=== PATIENT | female | born 1950 | race Caucasian/White ===

== ENCOUNTER 2019-12-08 07:56 | Day surgery (SDC) | payer BC, SELFPAY ==
[2019-12-07 13:21] VITALS: BMI 37.3
--- NOTE | 2019-12-08 08:26 | ANES.PREANES ---
Pre-Anesthetic Assessment Pre-Anesthetic Assessment: Height/Weight: Height 1.6 m Weight 95.708 kg Proposed Procedure: Operation Date: 12/08/19 09:15 Proposed Procedures p EGD 04928 R10.13(Not Applicable) - Luis Miguel Maynard MD Social: Social History: No alcohol and No tobacco Exam: Pre-Anes Outpt Exam: alert, oriented x 3, clear to auscultation bilaterally and regular rate & rhythm Airway: Submandibular: WNL Cervical ROM: WNL MP: 2 Dentition: Full History/ROS: No significant history except as noted Pulmonary: Pulmonary: None reported CV/HEM: CV/HEM: None reported : Comments: incontinance Hepatic: Hepatic: None reported GI: GI: GERD (controlled) Metabolic: Metabolic: Morbid obesity Musc/skel: Musc/skel: Lower Back Pain and OA/DJD Neuropsych: Neuropsych: Anxiety and Depression Anesthetic Plan: ASA status: III Anesthesia: Anesthesia Evaluation and MAC Risk of > 500 ml blood loss (7ml/kg in children): No PFSH Anesthesia PFSH: Medical History DDD (degenerative disc disease) (Acute) Depression (Acute) GERD (gastroesophageal reflux disease) (Acute) Hiatal hernia (Acute) Urge incontinence (Acute) Surgical History H/O colonoscopy (Acute) 3 yrs ago H/O total knee replacement (Acute) bilateral History of cataract extraction (Acute) History of oophorectomy (Acute) one removed Family History Mother Diabetes Brother Cancer Denies family history of Anesthesia complication Bleeding disorder Social History Smoking and tobacco status: former smoker Alcohol intake: never Lives independently: Yes Household members: spouse Marital status: Current occupational status: employed Data Anesthesia Cardiac Studies: No Data to Display
--- NOTE | 2019-12-08 08:55 | ECG_ITS ---
Measurements Intervals [place] Rate: 65 P: 21 HI: 178 QRS: 13 QRSD: 86 T: 52 QT: 416 QTc: 434 SINUS RHYTHM Compared to ECG 11/07/2015 12:37:21 No significant changes Electronically Signed On 12-08-2019 16:22:12 COVER ASSEMBLER by Paul Gibson M.D. [email or web address]
[2019-12-08 09:03] VITALS: BP 169/94; PULSE 71; RESP 18; TEMP 36.9; O2SAT 97
[2019-12-08] MEDS: sodium chloride 0.9% 1,000 ML 30 ML IV (09:07)
--- NOTE | 2019-12-08 09:22 | ANE.PACU ---
 Inpatient post-anesthesia follow up: Airway intact: Yes Vital signs: Temperature 98.4 F Pulse Rate [Monito r] 71 Respiratory Rate 18 Blood Pressure [Le ft Arm] 169/94 Pulse Oximetry 97 Oxygen Delivery Me thod Room Air Oxygen Flow Rate Fraction of Inspir ed Oxygen Hydration adequate: Yes Nausea and vomiting: No Pain level: 1 Mental status: Baseline
--- NOTE | 2019-12-08 09:43 | PM.HPUD ---
H&P update H&P Update: DATE OF SURGERY/PROCEDURE: 12/08/19 DATE H&P PERFORMED: 12/03/19 H&P UPDATE INFORMATION: H&P completed within last 30 days and No changes to prior documentation PLANNED PROCEDURE: Operation Date: 12/08/19 09:15 Proposed Procedures p EGD 34988 R10.13(Not Applicable) - Luis Miguel Maynard MD Full H&P Medications/Allergies: Current Medications: Current Medications Generic Name Dose Route Start Last Admin Trade Name Freq PRN Reason Stop Dose Admin Sodium Chloride 1,000 mls @ 30 ml s/hr 12/08/19 09:00 12/08/19 09:07 Sodium Chloride 0.9% IV 30 mls/hr .Q24H KIT Administration Perinent History: Medical/Surgical History: Medical History (Updated 12/03/19 @ 11:08 by Luis Miguel Maynard MD) DDD (degenerative disc disease) (Acute) Depression (Acute) GERD (gastroesophageal reflux disease) (Acute) Hiatal hernia (Acute) Urge incontinence (Acute) Family History: Family History (Updated 12/03/19 @ 10:58 by Yojana Beebe LPN) Mother Diabetes Brother Cancer Denies family history of Anesthesia complication Bleeding disorder Social History: Social History Smoking and tobacco status: former smoker Alcohol intake: never Lives independently: Yes Household members: spouse Marital status: Current occupational status: employed
[2019-12-08 09:49] VITALS: BP 118/78; PULSE 97; RESP 16; TEMP 36.5; O2SAT 97
[2019-12-08 09:55] VITALS: BP 142/64; PULSE 67; RESP 16; O2SAT 100
[2019-12-08 10:10] VITALS: BP 167/78; PULSE 67; RESP 18; O2SAT 100
== END 2019-12-08 10:33 | disposition home or self-care (01) ==
PROVIDERS: Family Provider Nurse Practitioner Family; PCP Nurse Practitioner Family; Visit Provider Surgery
PROC: 0DJ08ZZ Inspection of Upper Intestinal Tract, Via Natural or Artificial Opening Endoscopic (ICD-10-PCS; CPT 43235; principal; 2019-12-08 09:15)
DX: K21.9 Gastro-esophageal reflux disease without esophagitis (principal); K44.9 Diaphragmatic hernia without obstruction or gangrene; Z83.3 Family history of diabetes mellitus; Z87.891 Personal history of nicotine dependence; Z79.82 Long term (current) use of aspirin
CPT/HCPCS: 12345; 43239; 88305; 93005; 96365; J2704; J7030

== ENCOUNTER 2019-12-17 09:59 | Outpatient (CLI) | payer BC, SELFPAY ==
--- NOTE | 2019-12-17 10:00 | NM_ITS ---
WS: [id number] NUCLEAR MEDICINE HIDA SCAN WITH GALLBLADDER EJECTION FRACTION HISTORY: abdominal pain COMPARISON: 09/18/2006 TECHNIQUE: The patient was intravenously injected with 7.7 mCi of TC99m Mebrofenin. Immediate imaging over the right upper quadrant was followed by 5 minute image and additional images for a total of 60 minutes. Normal uptake of radiotracer throughout the liver. Activity identified in the gallbladder at 30 minutes and well distended by 60 minutes. Activity in the proximal small bowel was seen by 30 minutes. Good washout of the radiotracer from the liver by 60 minutes. The patient then drank 8 ounces of Ensure Plus. Ejection fraction at 60 minutes was 86%. Normal GB ej ection fraction is 35-75%. Post fatty meal symptoms: None. NM/NM hepatobiliary w phar* [id number] IMPRESSION: 1. Normal HIDA scan. 2. Normal gallbladder ejection fraction.
== END 2019-12-17 10:00 | disposition home or self-care (01) ==
LOC: RAD 10:06
PROVIDERS: Visit Provider Surgery
DX: R10.9 Unspecified abdominal pain (principal)
CPT/HCPCS: 78227; A9537

== ENCOUNTER 2019-12-26 18:37 | Emergency (ER) | payer BC, SELFPAY ==
[2019-12-26 19:19] VITALS: BP 169/99; PULSE 90; RESP 16; TEMP 36.9; O2SAT 99; BMI 37.7
--- NOTE | 2019-12-26 19:42 | USCV_ITS ---
Anyi Shoemaker Age: 69 Gender: F : 1950 Exam Date: 12/26/2019 20:46 Ordering Phys: Varun Sargent Technologist: Nicholas Patel Exam Location: [facility] – [place]_ Indication: RT LEG PAIN AND SWELLING HISTORY: Lower extremity swelling. PROCEDURES: Venous duplex imaging was performed in only the right lower extremity. The following venous structures were evaluated: common femoral vein, profunda vein, proximal portion of the greater saphenous vein, superficial femoral vein, and the popliteal vein. In addition, the posterior tibial and peroneal trunk were evaluated. On the right side, the common femoral, superficial femoral, profunda femoral, popliteal, posterior tibial, greater saphenous veins and the peroneal trunk were identified and interrogated in the standard fashion. These veins were found to be easily compressible with spontaneous blood flow. No evidence of insufficiency or thrombus noted. FINDINGS: Normal 2-D Doppler and augmentation and compressibility throughout the lower extremity venous structures. Additional imaging through the proximal calf veins also reveals no thrombus. Limited evaluation of the greater saphenous vein is patent with no thrombus.. The veins were found to be easily compressible with spontaneous blood flow. Non pulsatile flow pattern. CONCLUSIONS No evidence of DVT in the above-mentioned identifiable veins. Dr Mary Farrar MD [facility] (Electronically Signed) Final Date: 28 December 2019 10:13 S
[2019-12-26 20:02] LABS: Basophils # 0.1 10^3/uL (0.0-0.1); Basophils % 0.5 %; Eosinophils # 0.2 10^3/uL (0.0-0.8); Eosinophils % 2.1 %; Hematocrit 41.5 % (37.0-47.0); Lymphocytes # 1.4 10^3/uL (0.8-4.8); Lymphocytes % 15.2 %; Mean Corpuscular HGB Conc 31.3 g/dL (30.0-36.0); Mean Corpuscular Hemoglobin 31.8 pg (28.0-34.0); Mean Corpuscular Volume 101.5 fL (81-99); Mean Platelet Volume 10.2 fL (7.4-10.4); Monocytes # 0.7 10^3/uL (0.2-0.9); Monocytes % 7.1 %; Neutrophils # 6.8 10^3/uL (1.8-7.7); Neutrophils % 74.9 %; Nucleated Red Blood Cells % 0 %; Platelet Count 243 10^3/cmm (130-400); Red Blood Count 4.09 10^6/uL (4.1-5.3); Red Cell Distribution Width 13.4 % (12.1-15.1); White Blood Count 9.1 10^3/uL (4.0-10.0)
[2019-12-26 20:15] LABS: Lactic Sepsis W/Reflex 0.9 mmol/L (0.5-2.2)
[2019-12-26 20:16] LABS: Alanine Aminotransferase 14 U/L (0-33); Albumin Level 4.2 g/dL (3.5-5.2); Alkaline Phosphatase 58 IU/L (35-105); Anion Gap 14.5 (5-19); Aspartate Amino Transferase 20 U/L (0-32); Blood Urea Nitrogen 11 mg/dL (8-23); Calcium 9.6 mg/dL (8.5-10.5); Carbon Dioxide 29 mmol/L (22-29); Chloride 102 mmol/L (98-107); Globulin 3.3 g/dL (1.3-4.6); Glomerular Filtration Rate 122.3 mL/min (90-130); Glucose 112 mg/dL (65-115); Potassium 4.5 mmol/L (3.5-5.1); Sodium 141 mmol/L (136-145); Total Bilirubin 0.2 mg/dL (0.15-1.2); Total Protein 7.5 g/dL (6.6-8.7)
--- NOTE | 2019-12-26 21:38 | ED_ITS ---
Documented by User: ADRIANA Jimenez 12/26/19 21:40 HPI - Extremity Problem General: Chief complaint: Extremity Injury, Lower Stated complaint: swelling rle Time Seen by Provider: 12/26/19 21:25 History of Present Illness: HPI Narrative: Swelling of the right lower extremity on the grant area times a couple days. Patient history of varicose veins. MD Complaint: extremity pain Onset (ago): day(s) (2) Pain Consistency: constant Location: right and lower extremity Severity scale (1-10): 3 Quality: aching Radiation: none Relieving factors: nothing Exacerbating factors: nothing Associated symptoms: Reports no associated symptoms; Deny chest pain, fever(s) or rash Review of Systems Narrative: Swelling and redness to the right lower extremity anterior aspect x2 days and history of varicose veins. Const: Denies: fever, chills or body aches Eyes: Denies: change in vision or blurry vision ENMT: Denies: throat pain or nasal congestion Card: Denies: chest pain or shortness of breath on exertion Resp: Denies: shortness of breath, productive cough or non-productive cough GI: Denies: abdominal pain, nausea or vomiting Musc: Denies: extremity pain Skin/Breast: Denies: rash Neuro: Denies: headache Psych: Denies: anxiety or depression Vinnie/Lymph: Denies: easy bruising PFSH ED PFSH: Medical History (Updated 12/26/19 @ 21:38 by ADRIANA Jimenez) DDD (degenerative disc disease) Depression GERD (gastroesophageal reflux disease) Hiatal hernia Urge incontinence Surgical History (Updated 12/08/19 @ 09:45 by Luis Miguel Maynard MD) H/O colonoscopy 3 yrs ago H/O esophagogastroduodenoscopy 12/08/2019: Hiatal hernia H/O total knee replacement bilateral History of cataract extraction History of oophorectomy one removed Social History Smoking and tobacco status: former smoker Alcohol intake: never Lives independently: Yes Household members: spouse Marital status: Current occupational status: employed Physical Exam Const: COMMON NORMALS: no apparent distress, average body habitus and oriented x3 HENMT: COMMON NORMALS: normocephalic HEAD & SCALP: normal to inspection and normocephalic FACE & SINUS: normal facial exam Eye: COMMON NORMALS: conjunctivae normal GENERAL EYE: normal appearance of both eyes CONJUNCTIVA: Yes conjunctivae normal Neck/C-Spine: COMMON NORMALS: no JVD Chest: COMMONS NORMALS: inspection of chest normal Resp: COMMON NORMALS: normal respiratory effort and clear to auscultation bilaterally AUSCULTATION: clear to auscultation bilaterally Cardio: COMMON NORMALS: no JVD, regular rate and regular rhythm RATE: regular rate RHYTHM: regular rhythm GI: COMMON NORMALS: normal to inspection, nondistended, normoactive bowel sounds Extremity: COMMON NORMALS: normal to inspection and full ROM RIGHT LOWER EXTREMITY: Yes lower leg (Has area about a 4 cm x 5 cm lower grant anterior aspect that has erythema slight tenderness and there are scattered varicose veins right around the right lower extremity) Neuro: COMMON NORMALS: oriented x3 Course Vital Signs: Vital signs: Vital Signs Temperature 98.4 F 12/26/19 19:19 Pulse Rate 88 12/26/19 21:58 Respiratory Rate 16 12/26/19 21:58 Blood Pressure 167/65 12/26/19 21:58 Pulse Oximetry 97 12/26/19 21:58 MDM - Extremity (Nontraumatic) MDM Narrative: Medical decision making narrative: pharmaceutical development technician says it is a superficial phlebitis on the right lower extremity Lab Data: Labs: Lab Results 12/26/19 12/26/19 12/26/19 Range/Units 19:50 19:50 19:50 WBC 9.1 (4.0-10.0) 10^3/ uL RBC 4.09 L (4.1-5.3) 10^6/u L Hgb 13.0 (11.5-15.3) g/dL Hct 41.5 (37.0-47.0) % MCV 101.5 H (81-99) fL MCH 31.8 (28.0-34.0) pg MCHC 31.3 (30.0-36.0) g/dL RDW 13.4 (12.1-15.1) % Plt Count 243 (130-400) 10^3/c mm MPV 10.2 (7.4-10.4) fL Neut % (Auto) 74.9 % Lymph % (Auto) 15.2 % [place] % (Auto) 7.1 % Eos % (Auto) 2.1 % Baso % (Auto) 0.5 % Neut # (Auto) 6.8 (1.8-7.7) 10^3/u L Lymph # (Auto) 1.4 (0.8-4.8) 10^3/u L [place] # (Auto) 0.7 (0.2-0.9) 10^3/u L Eos # (Auto) 0.2 (0.0-0.8) 10^3/u L Baso # (Auto) 0.1 (0.0-0.1) 10^3/u L Nucleated RBC % (a uto) 0 % Nucleated RBCs # 0.0 /100WBC PT 12.40 (10.5-13.3) SECO NDS INR 0.90 (0.8-1.2) Sodium 141 (136-145) mmol/L Potassium 4.5 (3.5-5.1) mmol/L Chloride 102 (98-107) mmol/L Carbon Dioxide 29 (22-29) mmol/L Anion Gap 14.5 (5-19) BUN 11 (8-23) mg/dL Creatinine 0.5 (0.5-0.9) mg/dL GFR Calculation 122.3 (90-130) mL/min Glucose 112 (65-115) mg/dL Lactic Acid (0.5-2.2) mmol/L Calcium 9.6 (8.5-10.5) mg/dL Total Bilirubin 0.2 (0.15-1.2) mg/dL AST 20 (0-32) U/L ALT 14 (0-33) U/L Alkaline Phosphata se 58 (35-105) IU/L Total Protein 7.5 (6.6-8.7) g/dL Albumin 4.2 (3.5-5.2) g/dL Globulin 3.3 (1.3-4.6) g/dL 12/26/19 Range/Units 19:50 WBC (4.0-10.0) 10^3/ uL RBC (4.1-5.3) 10^6/u L Hgb (11.5-15.3) g/dL Hct (37.0-47.0) % MCV (81-99) fL MCH (28.0-34.0) pg MCHC (30.0-36.0) g/dL RDW (12.1-15.1) % Plt Count (130-400) 10^3/c mm MPV (7.4-10.4) fL Neut % (Auto) % Lymph % (Auto) % [place] % (Auto) % Eos % (Auto) % Baso % (Auto) % Neut # (Auto) (1.8-7.7) 10^3/u L Lymph # (Auto) (0.8-4.8) 10^3/u L [place] # (Auto) (0.2-0.9) 10^3/u L Eos # (Auto) (0.0-0.8) 10^3/u L Baso # (Auto) (0.0-0.1) 10^3/u L Nucleated RBC % (a uto) % Nucleated RBCs # /100WBC PT (10.5-13.3) SECO NDS INR (0.8-1.2) Sodium (136-145) mmol/L Potassium (3.5-5.1) mmol/L Chloride (98-107) mmol/L Carbon Dioxide (22-29) mmol/L Anion Gap (5-19) BUN (8-23) mg/dL Creatinine (0.5-0.9) mg/dL GFR Calculation (90-130) mL/min Glucose (65-115) mg/dL Lactic Acid 0.9 (0.5-2.2) mmol/L Calcium (8.5-10.5) mg/dL Total Bilirubin (0.15-1.2) mg/dL AST (0-32) U/L ALT (0-33) U/L Alkaline Phosphata se (35-105) IU/L Total Protein (6.6-8.7) g/dL Albumin (3.5-5.2) g/dL Globulin (1.3-4.6) g/dL Discharge Plan Discharge Patient Disposition: Home, Self-Care Clinical Impression: Superficial phlebitis Condition: Stable Prescriptions: New Keflex 500 mg capsule 500 mg PO TID 7 Days Qty: 21 RF: 0 prednisone 5 mg tablet 5 mg PO DAILY Qty: 7 RF: 0 No Action omeprazole 20 mg capsule,delayed release(DR/EC) 20 mg PO BID RF: 0 furosemide 20 mg tablet 20 mg PO QAM PRN (Reason: Edema) RF: 0 citalopram 20 mg tablet 10 mg PO DAILY RF: 0 albuterol sulfate [ProAir HFA] 90 mcg/actuation HFA aerosol inhaler 2 puff INHALATION Q6H PRN (Reason: Shortness Of Breath) RF: 0 alendronate 70 mg tablet 70 mg PO .once a week RF: 0 cholecalciferol (vitamin D3) 1,000 unit capsule 1,000 unit PO QDAY RF: 0 calcium carbonate 500 mg calcium (1,250 mg) tablet 500 mg PO QDAY RF: 0 vitamin B complex [B Complex-Vitamin B12] Tablet 1 tab PO QDAY RF: 0 aspirin 81 mg tablet,delayed release (DR/EC) 81 mg PO QDAY RF: 0 cetirizine 10 mg tablet 10 mg PO QDAY RF: 0 Discharge Orders: Discharge Order (Routine); Ordered 12/26/19 Ordered By: Varun Sargent Discharge Diet: Advance as tolerated Discharge Activity: Increase activity as tolerated Patient Instructions: Superficial Thrombophlebitis (ED) Activity Restrictions/Additional Instructions: Follow-up with medical provider as directed. Take medications as prescribed. Return to the ER or your medical provider if condition worsens. Please read and understand discharge instructions. If any questions ask please. Follow-up with Dr. Maynard next week as scheduled and have him evaluate the leg Discharge Date/Time: 12/26/19 21:59 Coding Level of Care Code ED Burn Crew Member for Chg Fwd Exam Comprehensive Documented by User: Ceci Rouse 12/27/19 02:43 HPI - Extremity Problem General: Chief complaint: Extremity Injury, Lower Stated complaint: swelling rle Time Seen by Provider: 12/26/19 21:25 [facility] ED PFSH: Medical History (Updated 12/26/19 @ 21:38 by ADRIANA Jimenez) DDD (degenerative disc disease) Depression GERD (gastroesophageal reflux disease) Hiatal hernia Urge incontinence Surgical History (Updated 12/08/19 @ 09:45 by Luis Miguel Maynard MD) H/O colonoscopy 3 yrs ago H/O esophagogastroduodenoscopy 12/08/2019: Hiatal hernia H/O total knee replacement bilateral History of cataract extraction History of oophorectomy one removed Social History Smoking and tobacco status: former smoker Alcohol intake: never Lives independently: Yes Household members: spouse Marital status: Current occupational status: employed Course Vital Signs: Vital signs: Vital Signs Temperature 98.4 F 12/26/19 19:19 Pulse Rate 88 12/26/19 21:58 Respiratory Rate 16 12/26/19 21:58 Blood Pressure 167/65 12/26/19 21:58 Pulse Oximetry 97 12/26/19 21:58 MDM - Extremity (Nontraumatic) Lab Data: Labs: Lab Results 12/26/19 12/26/19 12/26/19 Range/Units 19:50 19:50 19:50 WBC 9.1 (4.0-10.0) 10^3/ uL RBC 4.09 L (4.1-5.3) 10^6/u L Hgb 13.0 (11.5-15.3) g/dL Hct 41.5 (37.0-47.0) % MCV 101.5 H (81-99) fL MCH 31.8 (28.0-34.0) pg MCHC 31.3 (30.0-36.0) g/dL RDW 13.4 (12.1-15.1) % Plt Count 243 (130-400) 10^3/c mm MPV 10.2 (7.4-10.4) fL Neut % (Auto) 74.9 % Lymph % (Auto) 15.2 % [place] % (Auto) 7.1 % Eos % (Auto) 2.1 % Baso % (Auto) 0.5 % Neut # (Auto) 6.8 (1.8-7.7) 10^3/u L Lymph # (Auto) 1.4 (0.8-4.8) 10^3/u L [place] # (Auto) 0.7 (0.2-0.9) 10^3/u L Eos # (Auto) 0.2 (0.0-0.8) 10^3/u L Baso # (Auto) 0.1 (0.0-0.1) 10^3/u L Nucleated RBC % (a uto) 0 % Nucleated RBCs # 0.0 /100WBC PT 12.40 (10.5-13.3) SECO NDS INR 0.90 (0.8-1.2) Sodium 141 (136-145) mmol/L Potassium 4.5 (3.5-5.1) mmol/L Chloride 102 (98-107) mmol/L Carbon Dioxide 29 (22-29) mmol/L Anion Gap 14.5 (5-19) BUN 11 (8-23) mg/dL Creatinine 0.5 (0.5-0.9) mg/dL GFR Calculation 122.3 (90-130) mL/min Glucose 112 (65-115) mg/dL Lactic Acid (0.5-2.2) mmol/L Calcium 9.6 (8.5-10.5) mg/dL Total Bilirubin 0.2 (0.15-1.2) mg/dL AST 20 (0-32) U/L ALT 14 (0-33) U/L Alkaline Phosphata se 58 (35-105) IU/L Total Protein 7.5 (6.6-8.7) g/dL Albumin 4.2 (3.5-5.2) g/dL Globulin 3.3 (1.3-4.6) g/dL 12/26/19 Range/Units 19:50 WBC (4.0-10.0) 10^3/ uL RBC (4.1-5.3) 10^6/u L Hgb (11.5-15.3) g/dL Hct (37.0-47.0) % MCV (81-99) fL MCH (28.0-34.0) pg MCHC (30.0-36.0) g/dL RDW (12.1-15.1) % Plt Count (130-400) 10^3/c mm MPV (7.4-10.4) fL Neut % (Auto) % Lymph % (Auto) % [place] % (Auto) % Eos % (Auto) % Baso % (Auto) % Neut # (Auto) (1.8-7.7) 10^3/u L Lymph # (Auto) (0.8-4.8) 10^3/u L [place] # (Auto) (0.2-0.9) 10^3/u L Eos # (Auto) (0.0-0.8) 10^3/u L Baso # (Auto) (0.0-0.1) 10^3/u L Nucleated RBC % (a uto) % Nucleated RBCs # /100WBC PT (10.5-13.3) SECO NDS INR (0.8-1.2) Sodium (136-145) mmol/L Potassium (3.5-5.1) mmol/L Chloride (98-107) mmol/L Carbon Dioxide (22-29) mmol/L Anion Gap (5-19) BUN (8-23) mg/dL Creatinine (0.5-0.9) mg/dL GFR Calculation (90-130) mL/min Glucose (65-115) mg/dL Lactic Acid 0.9 (0.5-2.2) mmol/L Calcium (8.5-10.5) mg/dL Total Bilirubin (0.15-1.2) mg/dL AST (0-32) U/L ALT (0-33) U/L Alkaline Phosphata se (35-105) IU/L Total Protein (6.6-8.7) g/dL Albumin (3.5-5.2) g/dL Globulin (1.3-4.6) g/dL Discharge Plan Discharge Patient Disposition: Home, Self-Care Clinical Impression: Superficial phlebitis Condition: Stable Prescriptions: New Keflex 500 mg capsule 500 mg PO TID 7 Days Qty: 21 RF: 0 prednisone 5 mg tablet 5 mg PO DAILY Qty: 7 RF: 0 No Action omeprazole 20 mg capsule,delayed release(DR/EC) 20 mg PO BID RF: 0 furosemide 20 mg tablet 20 mg PO QAM PRN (Reason: Edema) RF: 0 citalopram 20 mg tablet 10 mg PO DAILY RF: 0 albuterol sulfate [ProAir HFA] 90 mcg/actuation HFA aerosol inhaler 2 puff INHALATION Q6H PRN (Reason: Shortness Of Breath) RF: 0 alendronate 70 mg tablet 70 mg PO .once a week RF: 0 cholecalciferol (vitamin D3) 1,000 unit capsule 1,000 unit PO QDAY RF: 0 calcium carbonate 500 mg calcium (1,250 mg) tablet 500 mg PO QDAY RF: 0 vitamin B complex [B Complex-Vitamin B12] Tablet 1 tab PO QDAY RF: 0 aspirin 81 mg tablet,delayed release (DR/EC) 81 mg PO QDAY RF: 0 cetirizine 10 mg tablet 10 mg PO QDAY RF: 0 Discharge Orders: Discharge Order (Routine); Ordered 12/26/19 Ordered By: Varun Sargent Discharge Diet: Advance as tolerated Discharge Activity: Increase activity as tolerated Patient Instructions: Superficial Thrombophlebitis (ED) Activity Restrictions/Additional Instructions: Follow-up with medical provider as directed. Take medications as prescribed. Return to the ER or your medical provider if condition worsens. Please read and understand discharge instructions. If any questions ask please. Follow-up with Dr. Maynard next week as scheduled and have him evaluate the leg Discharge Date/Time: 12/26/19 21:59 Coding Level of Care Code ED Burn Crew Member for Chg Fwd Exam Comprehensive
[2019-12-26] MEDS: predniSONE 10 mg Tablet PO (21:42)
[2019-12-26] MEDS: cephALEXin 500 mg Capsule PO (21:42)
[2019-12-26 21:58] VITALS: BP 167/65; PULSE 88; RESP 16; O2SAT 97
== END 2019-12-26 21:59 | disposition home or self-care (01) ==
PROVIDERS: Emergency Provider Nurse Practitioner Family
DX: I80.01 Phlebitis and thrombophlebitis of superficial vessels of right lower extremity (principal); Z87.891 Personal history of nicotine dependence
CPT/HCPCS: 80053; 83605; 85025; 85610; 93971; 99281; 99283; J7512

== ENCOUNTER 2020-01-07 15:13 | Outpatient (REF) | payer SELFPAY ==
[2020-01-07 16:42] LABS: Estmated Average Glucose 114; Hemoglobin A1C 5.6 % (4.0-6.0)
[2020-01-07 17:06] LABS: Chol HDL Ratio 3.04 mg/dL (0.0-4.40); Cholesterol 158 mg/dL (0-200); Glucose 92 mg/dL (65-115); HDL Cholesterol 52 mg/dL (60-100); LDL Cholesterol Calculated 91 mg/dL (50-129); LDL HDL Ratio 1.75 RATIO (0.00-3.22); Triglycerides 75 mg/dL (0-150)
== END 2020-01-07 15:14 | disposition home or self-care (01) ==
LOC: LAB 15:13
PROVIDERS: Visit Provider Dermatology
DX: Z13.9 Encounter for screening, unspecified (principal)
CPT/HCPCS: 80061; 82947; 83036

== ENCOUNTER 2020-06-27 11:28 | Emergency (ER) | payer BC, SELFPAY ==
[2020-06-27 11:30] VITALS: BP 185/72; PULSE 75; RESP 18; TEMP 36.6; O2SAT 97; BMI 37.2
--- NOTE | 2020-06-27 11:47 | XR_ITS ---
WS: [id number] RIGHT RIBS, MULTIPLE VIEWS WITH PA CHEST HISTORY: fall/pain COMPARISON: 12/10/2016 Lungs and mediastinum: Lungs are clear. No pneumothorax or pulmonary contusion. No pleural effusion. Ribs: No fractures are identified. Several of the images are degraded by motion. XR/XR ribs RT mn 3V w CXR1V [id number] IMPRESSION: Limited examination secondary to motion. No fractures identified.
--- NOTE | 2020-06-27 11:49 | W.ED.FALL ---
HPI - Fall General: Chief Complaint: Fall Stated Complaint: FALL Time Seen by Provider: 06/27/20 11:33 Source: patient Mode of arrival: ambulatory Limitations: no limitations History of Present Illness: HPI Narrative: Patient is a 69-year-old female who presents to ED today with a complaint of right-sided back pain following a fall that occurred approximately 3 to 4 days ago. Patient tells me on Saturday of last week she was at [employer] and was coming out of the bathroom and was turning around when her feet got caught up causing her to fall backwards and strike the right side of her back onto the adjacent door hinge. Patient states she began noticing pain immediately and is seeking evaluation today because pain does not seem to improve. They have noticed bruising to the right side of her back. She denies any other injury sustained during the fall. MD complaint: fall Onset (ago): day(s) Fall from: standing Fall witnessed: yes, by bystander Place fall occurred: other ([facility]) Loss of consciousness: None Prolonged down time: no Context: tripped/slipped Location of injury: chest Associated symptoms-after fall: Denies abdominal pain, chest pain, headache(s) or neck pain Review of Systems Const: Denies: fever(s), chills or body aches Eyes: Denies: change in vision Card: Denies: chest pain, palpitations, irregular heart rhythm, syncope or pre-syncope Resp: Denies: dyspnea, productive cough, non-productive cough, hemoptysis or chest congestion GI: Denies: abdominal pain, nausea or vomiting Musc: Reports: back pain; Denies: neck pain, extremity pain, extremity swelling, joint pain or joint swelling Neuro: Denies: headache(s), numbness in extremities, weakness in extremities or sensory changes [facility] ED PFSH: Medical History (Updated 06/27/20 @ 12:34 by YOVANA Drake) DDD (degenerative disc disease) Depression GERD (gastroesophageal reflux disease) Hiatal hernia Urge incontinence Surgical History H/O colonoscopy 3 yrs ago H/O esophagogastroduodenoscopy 12/08/2019: Hiatal hernia H/O total knee replacement bilateral History of cataract extraction History of oophorectomy one removed Family History Mother Diabetes Brother Cancer Denies family history of Anesthesia complication Bleeding disorder Social History Smoking and tobacco status: former smoker Alcohol intake: never Lives independently: Yes Household members: spouse Marital status: Current occupational status: employed History of recent travel: No Physical Exam Const: COMMON NORMALS: no acute distress, patient oriented x3, no limitations and alert NUTRITIONAL APPEARANCE: obese HENMT: COMMON NORMALS: normocephalic and atraumatic HEAD & SCALP: normocephalic and atraumatic Neck/C-Spine: COMMON NORMALS: full ROM CERVICAL SPINE: Yes cervical ROM normal, No Cervical spine tenderness and No Paracervical muscle tenderness Chest: CHEST: Yes abnormal inspection of the chest (pt with ecchymosis to R lower posterior chest wall), No crepitus and Yes Ecchymosis present OTHER: TTP R lower posterior ribs Resp: COMMON NORMALS: normal respiratory effort and clear to auscultation bilaterally AUSCULTATION: clear to auscultation bilaterally Cardio: COMMON NORMALS: regular rate and regular rhythm RATE: regular rate RHYTHM: regular rhythm GI: COMMON NORMALS: Normal to inspection, nondistended, normoactive bowel sounds present, Soft to palpation, non-tender, No hepatosplenomegaly present and no masses PALPATION: Yes Soft to palpation and Yes No hepatosplenomegaly present Back/Pelvis: COMMON NORMALS: thoracic and lumbar spine normal to inspection, no thoracic nor lumbar tenderness and thoraco-lumbar ROM normal Extremity: COMMON NORMALS: normal to inspection and full ROM GENERAL: Yes normal exam except as noted Neuro: COMMON NORMALS: patient oriented x3, moves all extremities, no focal motor deficits, no sensory deficits noted and gait normal SENSORIUM/ORIENTATION: Yes alert Skin: NARRATIVE SKIN EXAM: ecchymosis-see back assessment; otherwise normal skin exam Course Vital Signs: Vital signs: Vital Signs Temperature 97.8 F 06/27/20 11:30 Pulse Rate 72 06/27/20 12:13 Respiratory Rate 18 06/27/20 12:13 Blood Pressure 173/75 06/27/20 12:13 Pulse Oximetry 97 06/27/20 12:13 MDM - Fall Imaging Data^: R ribs/CXR: Radiologist's impression: [facility] [address] [place] [address] XRay Report Signed Patient: Anyi Shoemaker Unit #: [id number] : [id number] Age/Sex: 69 / F ADM Date: 06/27/20 Loc: ER Room/Bed: Attending Dr: Ordering Provider/Ordering MD: Yaima Adame Date of Service: 06/27/20 Procedure(s): XR ribs RT mn 3V w CXR1V 81832 Accession Number(s): [id number] Report Number: [id number] WS: [id number] RIGHT RIBS, MULTIPLE VIEWS WITH PA CHEST HISTORY: fall/pain COMPARISON: 12/10/2016 Lungs and mediastinum: Lungs are clear. No pneumothorax or pulmonary contusion. No pleural effusion. Ribs: No fractures are identified. Several of the images are degraded by motion. XR/XR ribs RT mn 3V w CXR1V 16054 IMPRESSION: Limited examination secondary to motion. No fractures identified. Dictated By: Nirmala Diallo DO Signed By: Nirmala Diallo DO Signed Date/Time: 06/27/20 1215 DD/ 1214 Discharge Plan Discharge Patient Disposition: Home Clinical Impression: Contusion of rib on right side Qualifiers: Encounter type: initial encounter Qualified Code(s): S20.211A - Contusion of right front wall of thorax, initial encounter Condition: Stable Prescriptions: New hydrocodone-acetaminophen 5-325 mg tablet 1 tab PO Q6H PRN (Reason: pain) Qty: 14 RF: 0 No Action omeprazole 20 mg capsule,delayed release(DR/EC) 20 mg PO BID RF: 0 citalopram 20 mg tablet 10 mg PO DAILY RF: 0 albuterol sulfate [ProAir HFA] 90 mcg/actuation HFA aerosol inhaler 2 puff INHALATION Q6H PRN (Reason: Shortness Of Breath) RF: 0 furosemide [Lasix] 40 mg tablet 40 mg PO DAILY Qty: 30 RF: 2 potassium chloride 10 mEq capsule, extended release 10 meq PO DAILY Qty: 30 RF: 2 alendronate 70 mg tablet 70 mg PO .once a week RF: 0 cholecalciferol (vitamin D3) 1,000 unit capsule 1,000 unit PO QDAY RF: 0 calcium carbonate 500 mg calcium (1,250 mg) tablet 500 mg PO QDAY RF: 0 vitamin B complex [B Complex-Vitamin B12] Tablet 1 tab PO QDAY RF: 0 aspirin 81 mg tablet,delayed release (DR/EC) 81 mg PO QDAY RF: 0 cetirizine 10 mg tablet 10 mg PO QDAY RF: 0 Multiple Vitamin, Womens Tablet 1 tab PO DAILY RF: 0 Discharge Orders: Discharge Order (Routine); Ordered 06/27/20 Ordered By: Yaima Adame Patient Instructions: Rib Fracture (ED), Contusion in Adults (ED) Activity Restrictions/Additional Instructions: Return to the emergency department for worsening pain, difficulty breathing, shortness of breath, abdominal pain, any other concerns you may have. Please follow-up with primary care and 3 to 5 days if pain persists. 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
[2020-06-27 12:13] VITALS: BP 173/75; PULSE 72; RESP 18; O2SAT 97
== END 2020-06-27 12:50 | disposition home or self-care (01) ==
PROVIDERS: Emergency Provider Physician Assistant
DX: S20.211A Contusion of right front wall of thorax, initial encounter (principal); W18.39XA Other fall on same level, initial encounter; Z79.82 Long term (current) use of aspirin; Z87.891 Personal history of nicotine dependence
CPT/HCPCS: 12345; 71101; 99281; 99282

== ENCOUNTER 2020-07-19 15:55 | Outpatient (CLI) | payer BC, SELFPAY ==
--- NOTE | 2020-07-19 15:59 | XR_ITS ---
WS: [id number] RIGHT SHOULDER: 3 VIEW(S) TECHNIQUE: Internal and external rotation with Y view. HISTORY: right shoulder pain COMPARISON: None available. No fracture or dislocation or soft tissue abnormality. Moderate degenerative changes at the RIGHT AC joint. Joint space narrowing with osteophytes and subch ondral cystic changes. XR/XR shoulder RT min 2V* [id number] IMPRESSION: Moderate AC joint arthritis.
--- NOTE | 2020-07-19 15:59 | XR_ITS ---
WS: [id number] THORACIC SPINE TECHNIQUE: AP and lateral views are performed. HISTORY: thoracic back pain COMPARISON: 06/26/2011, 12/10/2016 and 08/12/2015 Mild increase in thoracic kyphosis and LEFT convex curvature. Degenerative disc disease with narrowin g throughout the thoracic spine. Stable anterior compression fracture at T4 by 20%. Prior 20% jovi precious fracture at T12 without retropulsion. Pedicles are all identified. XR/XR thoracic spine 3V* [id number] IMPRESSION: 1. New since 08/12/2015 but present on 12/10/2016, T12 compression fracture by 20%. 2. Remote stable T4 compression fracture. 3. Mild thoracic spondylosis.
--- NOTE | 2020-07-19 15:59 | XR_ITS ---
WS: [id number] CERVICAL SPINE 3 VIEWS HISTORY: neck pain COMPARISON: 04/23/2011 Straightening and RIGHT convex curvature cervical spine similar to the prior study. 3 mm retrolisthes is of C4. Moderate to severe disc space narrowing at C4-5 is similar to the prior study. Most signifi cant degenerative changes are present at the C4-5 disc and facet level. Bilateral masses are aligned odontoid is intact. Soft tissues are normal. XR/XR cervical spine 3V* [id number] IMPRESSION: 1. Moderate to severe spondylosis at the C4-5 disc level. Similar to 04/23/2011 . 2. No fracture.
== END 2020-07-19 15:56 | disposition home or self-care (01) ==
LOC: WPI 15:58
PROVIDERS: PCP Nurse Practitioner Family; Visit Provider Nurse Practitioner Family
DX: M25.511 Pain in right shoulder (principal); S22.040A Wedge compression fracture of fourth thoracic vertebra, initial encounter for closed fracture; X58.XXXA Exposure to other specified factors, initial encounter; M47.814 Spondylosis without myelopathy or radiculopathy, thoracic region; M47.812 Spondylosis without myelopathy or radiculopathy, cervical region
CPT/HCPCS: 72040; 72072; 73030

== ENCOUNTER → 2020-07-31 12:49 | Outpatient (BNVA) | payer BC, SELFPAY | PROVIDERS: PCP Nurse Practitioner Family | DX: Z20.828 Contact with and (suspected) exposure to other viral communicable diseases (principal) | CPT/HCPCS: 87635 ==

== ENCOUNTER 2021-02-28 14:48 | Outpatient (CLI) | payer BC, SELFPAY ==
--- NOTE | 2021-02-28 15:22 | XR_ITS ---
WS: [id number] DEXA (DUAL ENERGY X-RAY ABSORPTIOMETRY) Bone mineral density was performed using a [employer] machine. HISTORY: osteopenia COMPARISON: 04/04/2018 Lumbar spine BMD (L1-L4): 1.094 g/cm2 T score: -0.7 Z score: 0.1 Total hip BMD: Left: 0.668 g/cm2. T score: -2.7 Z score: -1.8 Right: 0.693 g/cm2. T score: -2.5 Z score: -1.6 10 year probability of a major osteoporotic fracture is 24%. Compared to the prior study from 04/04/2018. Lumbar spine bone mineral density has increased by 10.3%. Bilateral hips bone mineral density has increased by 3.2%. XR/XR DEXA axial skeleton* [id number] IMPRESSION: OSTEOPOROSIS based upon the WHO classification for females. Significant increase in bone mineral density in both the lumbar spine and hips since the prior study.
--- NOTE | 2021-02-28 15:30 | MM_ITS ---
WS: [id number] BILATERAL DIGITAL SCREENING MAMMOGRAPHY WITH CAD CLINICAL INFORMATION: screening HISTORY: Screening mammogram. No current complaints. COMPARISON: September 23, 2019 TECHNIQUE: Bilateral CC and MLO views. FINDINGS: The breasts are composed of heterogeneous fibroglandular density tissue, which can limit the detectio n of small underlying mass lesions. Nodular breast tissue upper outer breasts bilaterally unchanged i n appearance. Incidental intramammary lymph nodes upper outer quadrants. No suspicious mass, asymmetr y, calcifications, or architectural distortion. No evidence of malignancy. MM/[place] [id number] IMPRESSION: BI-RADS: 2-Benign FOLLOW UP: 1 Year Follow-up Recommend return to annual screening mammography.
== END 2021-02-28 14:49 | disposition home or self-care (01) ==
LOC: RADSHAW 14:54
PROVIDERS: PCP Nurse Practitioner Family; Visit Provider Family Medicine
DX: Z12.31 Encounter for screening mammogram for malignant neoplasm of breast (principal); M85.89 Other specified disorders of bone density and structure, multiple sites
CPT/HCPCS: 77067; 77080

== ENCOUNTER 2021-04-27 08:00 | Outpatient (CLI) | payer BC, SELFPAY ==
--- NOTE | 2021-04-27 08:34 | XR_ITS ---
WS: [id number] THORACIC SPINE TECHNIQUE: AP and lateral views are performed. HISTORY: M54.9 - Dorsalgia, unspecified COMPARISON: 07/19/2020 Mild S-shaped curvature of the thoracic spine has slightly increased since 07/19/2020. There is mild as ymmetric disc space narrowing in the mid to lower thoracic spine. Pedicles are all identified. Endpla te osteophytes at the mid to lower thoracic spine are stable. No acute fracture. No bone destruction. There is mild anterior wedging of T12 is stable. There is also mild anterior wedging of T4 which is stable. XR/XR thoracic spine 3V* [id number] IMPRESSION: 1. Chronic mild compression fractures at T4 and T12. No change since 07/19/2020. 2. Mild S-shaped curvature thoracic spine with minimal increased since 0.
== END 2021-04-27 08:01 | disposition home or self-care (01) ==
PROVIDERS: PCP Nurse Practitioner Family; Visit Provider Family Medicine
DX: M54.6 Pain in thoracic spine (principal); S22.040A Wedge compression fracture of fourth thoracic vertebra, initial encounter for closed fracture; S22.080A Wedge compression fracture of T11-T12 vertebra, initial encounter for closed fracture; X58.XXXA Exposure to other specified factors, initial encounter; M43.9 Deforming dorsopathy, unspecified
CPT/HCPCS: 72072

== ENCOUNTER → 2021-06-29 16:42 | Outpatient (BNVA) | payer BC, SELFPAY | PROVIDERS: PCP Nurse Practitioner Family; Visit Provider Nurse Practitioner Family | DX: M25.512 Pain in left shoulder (principal) | CPT/HCPCS: 73030 ==

== ENCOUNTER → 2021-11-30 13:17 | Outpatient (BNVA) | payer BC, SELFPAY | PROVIDERS: PCP Nurse Practitioner Family; Visit Provider Surgery | DX: Z20.822 Contact with and (suspected) exposure to COVID-19 (principal); Z11.52 Encounter for screening for COVID-19 | CPT/HCPCS: 87635 ==

== ENCOUNTER 2021-12-06 06:24 | Day surgery (SDC) | payer BC, SELFPAY ==
[2021-12-04 15:29] VITALS: BMI 35.8
[2021-12-06 06:46] VITALS: BP 202/95; PULSE 80; RESP 16; TEMP 36.6; O2SAT 99
[2021-12-06] MEDS: sodium chloride 0.9% 1,000 ML 30 ML IV (07:04)
--- NOTE | 2021-12-06 07:25 | W.PM.OPSFHP ---
Same Day Surgery H&P Indication for Procedure/HPI DATE OF PROCEDURE: December 06, 2021 CHIEF COMPLAINT/INDICATIONFOR SURGICAL PROCEDURE: colonoscopy PREOP DIAGNOSIS: diagnostic PLANNED PROCEDURE: Operation Date: 12/06/21 07:30 Proposed Procedures p Colonoscopy 16261 K63.5(Not Applicable) - Luis Miguel Maynard MD Medications/Allergies* Home Medications Medication Instructions Recorded Confirmed Type aspirin 81 mg tablet,delayed 81 mg PO QDAY 12/03/19 12/06/21 History release calcium carbonate 500 mg calcium 500 mg PO QDAY 12/03/19 12/06/21 History (1,250 mg) tablet cholecalciferol (vitamin D3) 25 1,000 unit PO QDAY 12/03/19 12/06/21 History mcg (1,000 unit) capsule vitamin B complex (B 1 tab PO QDAY 12/03/19 12/06/21 History Complex-Vitamin B12) [id number]-Zb-plcy-minerals 1 tab PO DAILY 06/27/20 12/06/21 History (Multiple Vitamin, Womens) Lactobacillus acidophilus 10 10,000 mmu cells PO DAILY 12/04/21 12/06/21 History billion cell capsule (Probiotic) zinc 50 mg capsule 50 mg PO DAILY 12/04/21 12/06/21 History furosemide 40 mg tablet 40 mg PO DAILY 12/06/21 12/06/21 History potassium chloride 10 mEq 10 meq PO DAILY 12/06/21 12/06/21 History capsule,extended release Allergies/Adverse Reactions Allergy/AdvReac Type Severity Reaction Status Date / Time naproxen [From Aleve] Allergy ALGY-Rash Verified 12/06/21 06:50 tuberculin, purified protein Allergy ALGY-Rash Verified 12/06/21 06:50 deriva [From Tubersol] Current Medications: Generic Name Dose Route Start Last Admin Trade Name Freq PRN Reason Stop Dose Admin Sodium Chloride 1,000 mls @ 30 mls/hr 12/06/21 06:45 12/06/21 07:04 Sodium Chloride 0.9% IV 12/07/21 06:44 30 mls/hr .Q24H KIT Administration Pertinent History/Comorbid Conditions* Medical History (Updated 06/29/21 @ 16:48 by ADRIANA Waddell) DDD (degenerative disc disease) Depression GERD (gastroesophageal reflux disease) Hiatal hernia Urge incontinence Surgical History (Updated 12/08/19 @ 09:45 by Luis Miguel Maynard MD) H/O colonoscopy 3 yrs ago H/O esophagogastroduodenoscopy 12/08/2019: Hiatal hernia H/O total knee replacement bilateral History of cataract extraction History of oophorectomy one removed Family History (Updated 12/03/19 @ 10:58 by Yojana Beebe LPN) Diabetes Mother Cancer Brother Denies family history of Anesthesia complication Bleeding disorder Social History Alcohol intake: never Lives independently: Yes Household members: spouse Marital status: Current occupational status: employed History of recent travel: No Pertinent Exam Findings alert, oriented x 3 and regular rate & rhythm Recommendations Surgery/Procedure today Coding Level of Care Code Acute Planning Management It Specialist for Puam Martinez
--- NOTE | 2021-12-06 07:31 | ANES.PREANE2 ---
Pre-Anesthetic Assessment Height/Weight: Height 1.57 m Weight 88.904 kg Temp Pulse Resp BP Pulse Ox 97.9 F 80 16 202/95 99 12/06/21 06:46 12/06/21 06:46 12/06/21 06:46 12/06/21 06:46 12/06/21 06:46 Preop Diagnosis: diagnostic Operation Date: 12/06/21 07:30 Proposed Procedures p Colonoscopy 53103 K63.5(Not Applicable) - Luis Miguel Maynard MD Was Beta Lavon taken within 24 hours: Yes Was Clonidine taken within 24 hours: N/A Last intake: Intake Last Liquid Date 12/05/21 Last Liquid Time 21:00 Last Solid Date 12/04/21 Last Solid Time 17:00 Social No alcohol and No tobacco Exam alert, oriented x 3, clear to auscultation bilaterally and regular rate & rhythm Airway Submandibular: within normal limits Cervical ROM: within normal limits Mallampati: Class II Dentition: false Pulmonary None reported CV/HEM Hypertension None reported Hepatic None reported GI Gastroesophageal Reflux Disease (controlled) Metabolic None reported Musc/skel Lower Back Pain and Osteoarthritis/DJD Neuropsych Anxiety Anesthetic Plan ASA status: 2 Anesthesia: MAC Risk of > 500 ml blood loss (7ml/kg in children): No Medications/Allergies Home Medications Medication Instructions Recorded Confirmed Last Taken Type aspirin 81 mg tablet,delayed 81 mg PO QDAY 12/03/19 12/06/21 12/04/21 History release calcium carbonate 500 mg calcium 500 mg PO QDAY 12/03/19 12/06/21 12/04/21 History (1,250 mg) tablet cholecalciferol (vitamin D3) 25 1,000 unit PO QDAY 12/03/19 12/06/21 12/05/21 History mcg (1,000 unit) capsule vitamin B complex (B 1 tab PO QDAY 12/03/19 12/06/21 12/04/21 History Complex-Vitamin B12) rwztjsreepqv-Bq-xccw-minerals 1 tab PO DAILY 06/27/20 12/06/21 12/04/21 History (Multiple Vitamin, Womens) alendronate 70 mg tablet 70 mg PO .once a week #12 tab 02/14/21 12/06/21 11/29/21 Rx cetirizine 10 mg tablet 10 mg PO QDAY #30 tab 02/14/21 12/06/21 12/04/21 Rx celecoxib 200 mg capsule (Celebrex) 200 mg PO BID #60 cap 06/29/21 12/06/21 12/05/21 Rx lisinopril 20 mg tablet 20 mg PO DAILY #30 tab 08/07/21 12/06/21 12/05/21 Rx citalopram 20 mg tablet 10 mg PO DAILY #45 tab 10/13/21 12/06/21 12/04/21 Rx Lactobacillus acidophilus 10 10,000 mmu cells PO DAILY 12/04/21 12/06/21 12/04/21 History billion cell capsule (Probiotic) pantoprazole 40 mg tablet,delayed 40 mg PO DAILY 30 Days #30 tab 12/04/21 12/06/21 12/05/21 Rx release zinc 50 mg capsule 50 mg PO DAILY 12/04/21 12/06/21 12/04/21 History furosemide 40 mg tablet 40 mg PO DAILY 12/06/21 12/06/21 12/04/21 History potassium chloride 10 mEq 10 meq PO DAILY 12/06/21 12/06/21 12/04/21 History capsule,extended release Allergies Allergy/AdvReac Type Severity Reaction Status Date / Time naproxen [From Aleve] Allergy ALGY-Rash Verified 12/06/21 06:50 tuberculin, purified protein Allergy ALGY-Rash Verified 12/06/21 06:50 deriva [From Tubersol] Current Medications Generic Name Dose Route Start Last Admin Trade Name Freq PRN Reason Stop Dose Admin Sodium Chloride 1,000 mls @ 30 mls/hr 12/06/21 06:45 12/06/21 07:04 Sodium Chloride 0.9% IV 12/07/21 06:44 30 mls/hr .Q24H KIT Administration PFSH Anesthesia Medical History DDD (degenerative disc disease) Depression GERD (gastroesophageal reflux disease) Hiatal hernia Urge incontinence Surgical History H/O colonoscopy 3 yrs ago H/O esophagogastroduodenoscopy 12/08/2019: Hiatal hernia H/O total knee replacement bilateral History of cataract extraction History of oophorectomy one removed Family History Mother Diabetes Brother Cancer Denies family history of Anesthesia complication Bleeding disorder Social History Alcohol intake: never Lives independently: Yes Household members: spouse Marital status: Current occupational status: employed History of recent travel: No Data Anesthesia Cardiac Studies: No Data to Display
[2021-12-06 08:01] VITALS: BP 129/46; PULSE 61; RESP 16; TEMP 36.3; O2SAT 99
--- NOTE | 2021-12-06 08:04 | ANE.PACU2 ---
Inpatient post-anesthesia follow up: Airway intact: Yes Vital signs: Temperature 97.9 F Pulse Rate 80 Respiratory Rate 16 Blood Pressure 202/95 Pulse Oximetry 99 Oxygen Delivery Me thod Room Air Oxygen Flow Rate Fraction of Inspir ed Oxygen Hydration adequate: Yes Nausea and vomiting: No Pain level: 1 Mental status: Baseline
[2021-12-06 08:11] VITALS: BP 123/57; PULSE 64; RESP 18; TEMP 36.3; O2SAT 99
--- NOTE | 2021-12-06 13:38 | ANE.PACU2 ---
Inpatient post-anesthesia follow up: Airway intact: Yes Vital signs: Temperature 97.4 F Pulse Rate 64 Respiratory Rate 18 Blood Pressure 123/57 Pulse Oximetry 99 Oxygen Delivery Me thod Room Air Oxygen Flow Rate Fraction of Inspir ed Oxygen Hydration adequate: Yes Nausea and vomiting: No Pain level: 1 Mental status: Baseline
== END 2021-12-06 08:33 | disposition home or self-care (01) ==
PROVIDERS: PCP Nurse Practitioner Family; Visit Provider Surgery
PROC: 0DJD8ZZ Inspection of Lower Intestinal Tract, Via Natural or Artificial Opening Endoscopic (ICD-10-PCS; CPT 45378; principal; 2021-12-06 07:30)
DX: D12.2 Benign neoplasm of ascending colon (principal); D12.0 Benign neoplasm of cecum; D12.5 Benign neoplasm of sigmoid colon; K57.30 Diverticulosis of large intestine without perforation or abscess without bleeding; K64.8 Other hemorrhoids; Z86.010 Personal history of colon polyps; I10 Essential (primary) hypertension; K21.9 Gastro-esophageal reflux disease without esophagitis; M19.90 Unspecified osteoarthritis, unspecified site; Z79.82 Long term (current) use of aspirin; F32.9 Major depressive disorder, single episode, unspecified; Z83.3 Family history of diabetes mellitus
CPT/HCPCS: 45380; 88305; J2704; J7030

== ENCOUNTER → 2022-02-13 16:57 | Outpatient (BNVA) | payer BC, SELFPAY | PROVIDERS: PCP Nurse Practitioner Family; Visit Provider Nurse Practitioner Family | DX: Z00.00 Encounter for general adult medical examination without abnormal findings (principal); I10 Essential (primary) hypertension; M85.89 Other specified disorders of bone density and structure, multiple sites | CPT/HCPCS: 80053; 80061; 81003; 82306; 82607; 83735; 84443; 85025 ==

== ENCOUNTER 2022-02-28 07:03 | Outpatient (CLI) | payer BC, SELFPAY ==
--- NOTE | 2022-02-28 07:00 | US_ITS ---
WS: [id number] RIGHT UPPER QUADRANT ULTRASOUND HISTORY: R10.9 - Unspecified abdominal pain COMPARISON: 08/26/2019 Liver: 14.4 cm in length. Normal size liver. No bile duct dilatation or mass. Very mildly prominent e chotexture. Portal Vein: Normal hepatopetal flow with monophasic waveform. Gallbladder: Gallbladder is moderately contracted with diffuse wall thickening. No edema or perichole cystic fluid. Gallbladder wall measures 3 mm. CBD: 0.6 cm Pancreas: Normal size and echogenicity. Right kidney: 11.9 cm in length. Normal size and echogenicity. No hydronephrosis or mass. Aorta and IVC: Unremarkable abdominal aorta and IVC. No ascites. US/US gall bladder [id number] IMPRESSION: 1. Mild gallbladder contraction with diffuse wall thickening. No adjacent kenneth a. Consider hepatocellular disease and chronic cholecystitis. No cholelithiasis identified. 2. No bile duct dilatation.
== END 2022-02-28 07:04 | disposition home or self-care (01) ==
LOC: RAD 07:04
PROVIDERS: PCP Nurse Practitioner Family; Visit Provider Surgery
DX: R10.9 Unspecified abdominal pain (principal)
CPT/HCPCS: 76705

== ENCOUNTER 2022-04-10 10:05 | Outpatient (CLI) | payer BC, SELFPAY ==
--- NOTE | 2022-04-10 10:00 | NM_ITS ---
WS: [id number] NUCLEAR MEDICINE HIDA SCAN CLINICAL INFORMATION: R10.9 - Unspecified abdominal pain TECHNIQUE: Following intravenous administration of 8.6 mCi of technetium 99m mebrofenin, images of th e abdomen were obtained over the course of 60 minutes. Next, gallbladder ejection fraction was determ ined by obtaining preprandial and one-hour postprandial images of the gallbladder following oral jose stion of Ensure. COMPARISON: 12/17/19 FINDINGS: Normal hepatic uptake at 5 minutes. Gallbladder is visualized by 15 minutes. No evidence of acute cho lecystitis. Normal common bile duct activity. Normal small bowel activity. Gallbladder ejection fraction 87% within normal limits. No evidence of chronic cholecystitis. NM/NM hepatobiliary w phar* [id number] IMPRESSION: 1. No evidence of acute or chronic cholecystitis. 2. Gallbladder ejection fraction 87% within normal limits.
== END 2022-04-10 10:06 | disposition home or self-care (01) ==
PROVIDERS: PCP Nurse Practitioner Family; Visit Provider Surgery
DX: R10.9 Unspecified abdominal pain (principal)
CPT/HCPCS: 78227; A9537

== ENCOUNTER 2022-04-20 12:43 | Outpatient (CLI) | payer BC, SELFPAY ==
--- NOTE | 2022-04-20 13:30 | MM_ITS ---
WS: [id number] BILATERAL 3D TOMOSYNTHESIS DIGITAL SCREENING MAMMOGRAPHY WITH CAD CLINICAL INFORMATION: Z12.31 - Encounter for screening mammogram for malignant ... HISTORY: Screening mammogram. No current complaints. COMPARISON: February 28, 2021 TECHNIQUE: Bilateral CC and MLO views. FINDINGS: The breasts are composed of heterogeneous fibroglandular density tissue, which can limit the detectio n of small underlying mass lesions. Incidental punctate calcifications. Vascular calcification. No julio spicious mass, asymmetry, calcifications, or architectural distortion. No evidence of malignancy. MM/[place] [id number] IMPRESSION: BI-RADS: 2-Benign FOLLOW UP: 1 Year Follow-up Recommend return to annual screening mammography.
== END 2022-04-20 12:44 | disposition home or self-care (01) ==
LOC: RAD 12:44
PROVIDERS: PCP Nurse Practitioner Family; Visit Provider Nurse Practitioner Family
DX: Z12.31 Encounter for screening mammogram for malignant neoplasm of breast (principal)
CPT/HCPCS: 77063; 77067

== ENCOUNTER 2022-07-26 11:12 | Day surgery (SDC) | payer BC, SELFPAY ==
[2022-07-26] VITALS (10 sets, daily range): BP systolic 121–161; BP diastolic 47–85; PULSE 58–71; RESP 16–18; TEMP 36.5–36.8; O2SAT 91–100
--- NOTE | 2022-07-26 11:48 | W.PM.OPSUD ---
Surgery/Procedure H&P Update DATE OF PROCEDURE: July 26, 2022 DATE H&P PERFORMED: 07/11/22 PREOP DIAGNOSIS: Right upper quadrant syndrome PLANNED PROCEDURE: Operation Date: 07/26/22 12:55 Proposed Procedures p Laparoscopic Cholecystectomy 78678,R10.9(Not Applicable) - Alex Watts DO
[2022-07-26] MEDS: sodium chloride 0.9% 1,000 ML 30 ML IV (12:02)
[2022-07-26] MEDS: ceFAZolin 2,000 MG in sodium chloride 0.9% (plus) 50 ML 100 MG IV (12:06)
--- NOTE | 2022-07-26 12:11 | P.ANESASSM_ITS ---
Pre-Anesthetic Assessment Height/Weight: Height 1.57 m Weight 88.904 kg Temp Pulse Resp BP Pulse Ox O2 Del Method 98.3 F 69 18 161/85 96 07/26/22 11:38 07/26/22 11:38 07/26/22 11:38 07/26/22 11:38 07/26/22 11:38 07/26/22 11:38 Preop Diagnosis: Right upper quadrant syndrome Operation Date: 07/26/22 12:55 Proposed Procedures p Laparoscopic Cholecystectomy 52970,R10.9(Not Applicable) - Alex Watts DO Familial anesthetic complications: none Was Beta Lavon taken within 24 hours: N/A Was Clonidine taken within 24 hours: N/A Last intake: Intake Last Liquid Date 07/25/22 Last Liquid Time 20:30 Last Solid Date 07/25/22 Last Solid Time 20:30 Social No alcohol and No tobacco Exam alert, oriented x 3, clear to auscultation bilaterally and regular rate & rhythm Airway Submandibular: within normal limits Cervical ROM: within normal limits Mallampati: Class II CV/HEM Deep Vein Thrombosis and Hypertension GI Gastroesophageal Reflux Disease Metabolic Morbid Obesity [facility] [place], [place]/[facility] Lower Back Pain Anesthetic Plan Anesthesia: General Medications/Allergies Home Medications Medication Instructions Recorded Confirmed Last Taken Type aspirin 81 mg tablet,delayed 81 mg PO QDAY 12/03/19 07/26/22 07/25/22 History release calcium carbonate 500 mg calcium 500 mg PO QDAY 12/03/19 07/26/22 07/25/22 History (1,250 mg) tablet cholecalciferol (vitamin D3) 25 1,000 unit PO QDAY 12/03/19 07/25/22 12/05/21 History mcg (1,000 unit) capsule vitamin B complex (B 1 tab PO QDAY 12/03/19 07/26/22 07/25/22 History Complex-Vitamin B12) giksykqdlibl-Bl-kvvk-minerals 1 tab PO DAILY 06/27/20 07/25/22 12/04/21 History (Multiple Vitamin, Womens) cetirizine 10 mg tablet 10 mg PO QDAY #30 tabs 02/14/21 07/26/22 07/25/22 Rx Lactobacillus acidophilus 10 10,000 mmu cells PO DAILY 12/04/21 07/26/22 07/25/22 History billion cell capsule (Probiotic) zinc 50 mg capsule 50 mg PO DAILY 12/04/21 07/26/22 07/25/22 History alendronate 70 mg tablet 70 mg PO .once a week #12 tabs 02/13/22 07/25/22 Unknown Rx fluticasone propionate 50 1 spray intranasal BID #16 grams 02/13/22 07/25/22 Unknown Rx mcg/actuation nasal spray,suspension (Flonase Allergy Relief) furosemide 40 mg tablet 40 mg PO DAILY PRN edema #90 tabs 02/13/22 07/25/22 Unknown Rx potassium chloride 10 mEq 10 meq PO DAILY PRN take with 02/13/22 07/25/22 Unknown Rx capsule,extended release furosemide #90 caps citalopram 20 mg tablet 20 mg PO DAILY 07/25/22 07/26/22 07/25/22 History sucralfate 1 gram tablet (Carafate) 1 g PO DAILY 07/25/22 07/26/22 07/25/22 History lisinopril 20 mg tablet 20 mg PO DAILY 07/26/22 07/26/22 07/25/22 History Allergies Allergy/AdvReac Type Severity Reaction Status Date / Time naproxen [From Aleve] Allergy ALGY-Rash Verified 07/11/22 13:49 tuberculin, purified protein Allergy ALGY-Rash Verified 07/11/22 13:49 deriva [From Tubersol] Current Medications Generic Name Dose Route Start Last Admin Trade Name Freq PRN Reason Stop Dose Admin Sodium Chloride 1,000 mls @ 30 mls/hr 07/26/22 11:30 07/26/22 12:02 Sodium Chloride 0.9% IV 07/27/22 11:29 30 mls/hr .Q24H KIT Administration PFSH Anesthesia Medical History DDD (degenerative disc disease) Depression GERD (gastroesophageal reflux disease) Hiatal hernia Urge incontinence Surgical History H/O colonoscopy (12/06/21) polyps, diverticulosis H/O esophagogastroduodenoscopy 12/08/2019: Hiatal hernia H/O total knee replacement bilateral History of cataract extraction History of oophorectomy one removed Family History Mother Diabetes Brother Cancer Denies family history of Anesthesia complication Bleeding disorder Social History Smoking and tobacco status: never smoked Alcohol intake: never Lives independently: Yes Household members: spouse Marital status: Current occupational status: employed History of recent travel: No Data Anesthesia : 07/26/22 11:54 Cardiac Studies: No Data to Display
--- NOTE | 2022-07-26 12:44 | P.OP_ITS ---
Operative Report Date of procedure: July 26, 2022 Pre-op diagnosis: Preop Diagnosis Right upper quadrant syndrome Post-op diagnosis: same Procedure done: Laparoscopic cholecystectomy Specimens removed/disposition: Gallbladder Surgeon: Dr. Alex Watts DO Anesthesia: General Estimated blood loss (mL): 2 Complications: None apparent Brief History: Is a very pleasant 71 and was diagnosed with right upper quadrant syndrome. Laparoscopic cholecystectomy was indicated. The risks and benefits were described and documented Procedure: Patient was wheeled into the operative room and placed on the OR table in a supine position. Abdomen was inspected prepped and draped in usual sterile fashion. Time-out was performed and all present were in agreement. A 15 blade scalp was used to make a stab incision in the left upper quadrant and intra- abdominal insufflation was achieved using a Veress needle. After localizing the tissue incisions were made and a 5 millimeter trocar was placed into the umbilicus as well as 2 in the right upper quadrant. A 12 millimeter trocar was placed in the epigastrium. Gallbladder was grasped and elevated. The triangle of Calot was carefully dissected using blunt dissection and electrocautery until the triangle of Calot clearly identified. The cystic duct was clipped proximally and double clipped distally. The duct was then ligated proximally. The cystic artery was doubly clipped and ligated. The gallbladder was then removed from the liver bed using electrocautery. The gallbladder was removed from the abdomen using an Endo-Catch bag through the epigastric incision. The liver bed was inspected and no bleeding was seen. The abdomen was irrigated and suctioned. All ports removed. Skin was washed and dried. Incisions were closed with 3-0 and 4-O Vicryl in a subcuticular interrupted fashion. Skin glue was applied. Patient tolerated the procedure well.
--- NOTE | 2022-07-26 13:11 | SUR.PHASEI ---
1258 PT TO PACU 4 AWAKES TO VOICE BUT QUICKLY BACK TO SLEEP GOOD RESP EFFORT NOTED SATS 97% ON 8L MASK, ABDOMEN SOFT WITH 4 SITES WITH SKIN GLUE, BILAT SCDS ON IV TO RT AC WITH NS 400ML UP AT KVO RATE ID BRACELET TO LT WRIST PT ID'D WITH 2 IDENTIFIERS, PT HOB AT 30 DEGREES, MONITOR SR WITH NO ECTOPY.
--- NOTE | 2022-07-26 13:20 | SUR.PHASEI ---
1310 PT SLEEPY, COUGHS OCCASIONALLY AND MOANS BUT VERBALLY DENIES PAIN AND NAUSEA, PT SATS DOWN TO 90% PT PLACED ON 3LNC TO KEEP SATS OVER 94 % PT BELCHING OFTEN.
[2022-07-26] MEDS: HYDROcodone-acetaminophen 7.5-325 mg Tablet 1 TAB PO (13:53)
--- NOTE | 2022-07-26 15:26 | ANE.PACU2 ---
Inpatient post-anesthesia follow up: Airway intact: Yes Vital signs: Temperature 97.7 F Pulse Rate 58 Respiratory Rate 18 Blood Pressure 124/81 Pulse Oximetry 100 Oxygen Delivery Me thod Nasal Cannula Oxygen Flow Rate 2 Fraction of Inspir ed Oxygen Hydration adequate: Yes Nausea and vomiting: No Pain level: 3 Mental status: Baseline
== END 2022-07-26 15:26 | disposition home or self-care (01) ==
PROVIDERS: PCP Nurse Practitioner Family; Visit Provider Surgery
PROC: 0FT44ZZ Resection of Gallbladder, Percutaneous Endoscopic Approach (ICD-10-PCS; CPT 47562; principal; 2022-07-26 12:45)
DX: K80.10 Calculus of gallbladder with chronic cholecystitis without obstruction (principal); I10 Essential (primary) hypertension; Z86.718 Personal history of other venous thrombosis and embolism; K21.9 Gastro-esophageal reflux disease without esophagitis; E66.01 Morbid (severe) obesity due to excess calories; Z68.35 Body mass index [BMI] 35.0-35.9, adult
CPT/HCPCS: 47562; 36415; 88304; J1100; J2405; J2704; J2710; J3010; J3490; J7030

== ENCOUNTER 2022-08-08 12:50 | Outpatient (CLI) | payer BC, SELFPAY | END 2022-08-08 12:51 | disposition home or self-care (01) | LOC: LAB 12:51 | PROVIDERS: PCP Nurse Practitioner Family; Visit Provider Surgery | DX: R10.9 Unspecified abdominal pain (principal) | CPT/HCPCS: 87338 ==

== ENCOUNTER 2023-02-08 07:45 | Outpatient (CLI) | payer BC, SELFPAY ==
--- NOTE | 2023-02-08 08:00 | MM_ITS ---
WS: [id number] DIAGNOSTIC BILATERAL DIGITAL BREAST TOMOSYNTHESIS MAMMOGRAPHY WITH CAD HISTORY: N63.10 - Unspecified lump in the right breast. No palpable areas today. COMPARISON: 04/20/2022, 02/28/2021 and 09/23/2019 TECHNIQUE: Bilateral craniocaudad, mediolateral oblique, and mediolateral views are submitted with to mosynthesis and SM. Computer aided detection utilized. Breast composition: The breasts are heterogeneously dense, which may obscure small masses. Bilateral upper outer quadrant areas of increased fibroglandular tissue. There is similar to multiple prior exa minations. MM/[place] [id number] IMPRESSION: BI-RADS: 2-Benign FOLLOW UP: 1 Year Follow-up
== END 2023-02-08 07:46 | disposition home or self-care (01) ==
PROVIDERS: PCP Nurse Practitioner Family; Visit Provider Nurse Practitioner Family
DX: N63.10 Unspecified lump in the right breast, unspecified quadrant (principal)
CPT/HCPCS: 77062; G0279

== ENCOUNTER 2023-05-23 18:18 | Emergency (ER) | payer BC, SELFPAY ==
[2023-05-23 18:23] VITALS: BP 154/86; PULSE 90; RESP 18; TEMP 39.4; O2SAT 92; BMI 38.7
--- NOTE | 2023-05-23 18:27 | XRR_ITS ---
PROCEDURE INFORMATION: Exam: XR Chest Exam date and time: 05/23/2023 6:44 PM Age: 72 years old Clinical indication: Fever TECHNIQUE: Imaging protocol: Radiologic exam of the chest. Views: 1 view. COMPARISON: 1. CR XR ribs RT mn 3V w CXR1V [id number] 06/27/2020 12:02 PM 2. CR XR chest 2V* [id number] 12/10/2016 2:49 PM 3. CR XR shoulder LT min 2V* [id number] 06/29/2021 4:47 PM FINDINGS: Lungs: Left lower lung linear atelectasis versus scarring. No consolidation. Pleural spaces: Unremarkable. No pleural effusion. No pneumothorax. Heart/Mediastinum: Unremarkable. No cardiomegaly. Vasculature: Aortic arch atherosclerotic calcification. Bones/joints: Degenerative changes at the acromioclavicular joints. Asymmetric narrowing of the left acromial humeral interval suggest rotator cuff pathology. XR/XR chest 1V portable [id number] IMPRESSION: No acute findings.
[2023-05-23 19:01] LABS: Basophils # 0.1 10^3/uL (0.0-0.1); Basophils % 0.7 %; Eosinophils % 0.1 %; Hematocrit 37.1 % (37.0-47.0); Hemoglobin 11.6 g/dL (11.5-15.3); Lymphocytes # 0.5 10^3/uL (0.8-4.8); Lymphocytes % 7.3 %; Mean Corpuscular HGB Conc 31.3 g/dL (30.0-36.0); Mean Corpuscular Hemoglobin 30.4 pg (28.0-34.0); Mean Corpuscular Volume 97.1 fl (81-99); Mean Platelet Volume 10.7 fL (7.4-10.4); Monocytes # 0.5 10^3/uL (0.2-0.9); Monocytes % 6.7 %; Neutrophils # 6.03 10^3/uL (1.8-7.7); Neutrophils % 84.6 %; Nucleated Red Blood Cells % 0 %; Platelet Count 221 10^3/cmm (130-400); Red Blood Count 3.82 10^6/uL (4.1-5.3); Red Cell Distribution Width 14.4 % (12.1-15.1); White Blood Count 7.1 10^3/uL (4.0-10.0)
[2023-05-23 19:24] LABS: Lactic Sepsis W/Reflex 1.4 mmol/L (0.5-2.2)
[2023-05-23 19:29] LABS: Alanine Aminotransferase 12 U/L (0-33); Albumin Level 3.9 g/dL (3.5-5.2); Alkaline Phosphatase 52 U/L (35-105); Anion Gap 14.4 (5-19); Aspartate Amino Transferase 17 U/L (0-32); Blood Urea Nitrogen 12 mg/dL (8-23); Calcium 9.3 mg/dL (8.5-10.5); Carbon Dioxide 27 mmol/L (22-29); Chloride 98 mmol/L (98-107); Glucose 110 mg/dL (65-115); Osmolality Calculated 280 mOsm/kg (285-295); Potassium 4.4 mmol/L (3.5-5.1); Sodium 135 mmol/L (136-145); Total Bilirubin 0.2 mg/dL (0.15-1.2); Total Protein 6.9 g/dL (6.6-8.7)
--- NOTE | 2023-05-23 19:34 | W.ED.FEVER ---
HPI - Fever General: Chief Complaint: Fever Stated Complaint: neck pain/fever sent by Time Seen by Provider: 05/23/23 19:33 History of Present Illness: 72-year-old female comes in today with complaints of fever and feeling unwell since yesterday. Patient reports yesterday she was going to work and became ill throwing up x1. Patient just did not feel well the rest of the day into today. This afternoon patient felt warm and took her temperature and noticed it was 101. Patient then went to urgent care who referred her to the ER for further evaluation. Patient reports a headache and temperature. Patient continues to have some nausea. Patient reports no diarrhea or further vomiting. Patient works at [employer]. Patient has a history of GERD, osteoporosis, hypertension, reactive airway, seasonal allergies. Patient denies any tick bites or exposure to young children. Surgical history is gallbladder removal. Associated symptoms: Reports nausea and vomiting (One-time); Deny chest pain or confusion Review of Systems General: Reports: 10 or more systems reviewed and unremarkable except in HPI and below Const: Reports: fever(s) and malaise Eyes: Denies: change in vision ENMT: Denies: throat pain Card: Denies: chest pain Resp: Reports: non-productive cough (Occasional) GI: Reports: nausea and vomiting (One-time) : Denies: difficulty voiding Musc: Reports: neck pain Skin/Breast: Denies: rash Neuro: Denies: difficulty walking or confusion Psych: Denies: depression [facility] PFSH: Medical History DDD (degenerative disc disease) Depression GERD (gastroesophageal reflux disease) Hiatal hernia Urge incontinence Surgical History H/O colonoscopy (12/06/21) polyps, diverticulosis H/O esophagogastroduodenoscopy 12/08/2019: Hiatal hernia H/O total knee replacement bilateral History of cataract extraction History of oophorectomy one removed Hx of cholecystectomy Family History Mother Diabetes Brother Cancer Denies family history of Anesthesia complication Bleeding disorder Social History Smoking and tobacco status: never smoked Alcohol intake: never Substance/Drug Use: never Lives independently: Yes Household members: spouse Marital status: Current occupational status: employed Physical Exam Const: COMMON NORMALS: alert HENMT: HEAD & SCALP: normal to inspection MOUTH: Normal oral and palatal mucosa present THROAT: posterior oropharynx normal Neck/C-Spine: COMMON NORMALS: full ROM Resp: COMMON NORMALS: normal respiratory effort and clear to auscultation bilaterally AUSCULTATION: clear to auscultation bilaterally Cardio: COMMON NORMALS: regular rate and regular rhythm RATE: regular rate RHYTHM: regular rhythm GI: COMMON NORMALS: Soft to palpation PALPATION: Yes Soft to palpation and Yes Tenderness to palpation present (GI) (Epigastric) : COMMON NORMALS: Yes no CVA tenderness BLADDER/KIDNEY EXAM: Yes no CVA tenderness Back/Pelvis: COMMON NORMALS: no CVA tenderness Extremity: COMMON NORMALS: normal to inspection Neuro: SENSORIUM/ORIENTATION: Yes alert Skin: COMMON NORMALS: turgor normal GENERAL SKIN EXAM: turgor normal Course Vital Signs: Vital signs: Vital Signs Temperature 102.9 F H 05/23/23 18:23 Pulse Rate 89 05/23/23 19:46 Respiratory Rate 18 05/23/23 19:46 Blood Pressure 157/60 05/23/23 19:46 Pulse Oximetry 98 05/23/23 19:46 Oxygen Delivery Me thod Room Air 05/23/23 19:46 MDM - Fever Medical Decision Making 72-year-old female comes in today with complaints of fever, feeling malaise, and headache. On exam patient has no meningeal signs with good movement of the neck. Respirations are even lungs are clear to auscultation. Abdomen has some mild tenderness in epigastric region. No edema is noted in the extremities. No significant redness is noted in the extremities. Patient reported a history of cellulitis in the legs. Vital signs are normal except for temperature. Patient denies chronic medical problems but does take medication for blood pressure, reactive airway, seasonal allergies, GERD, and osteoporosis. Patient appears unwell but not toxic. Differential diagnosis includes but not limited to pneumonia, urinary tract infection, gastroenteritis, viral syndrome, COVID-19, diverticulitis. CBC was unremarkable showing no elevation in white blood cells or neutrophils. CMP showed no increase in liver enzymes or significant electrolyte abnormality. Urinalysis showed no significant abnormalities. Patient was treated with acetaminophen and had resolution of neck pain and fever. COVID-19 test was negative. Chest x-ray was unremarkable. CT of the abdomen and pelvis showed no signs of an acute surgical abdomen, abscess or infection. Patient did have some incidental lymph nodes in the chest for recommended follow-up. I reviewed the exam with Dr. Denis he agreed with plan to discharge patient with supportive care and recommendations for follow-up or return for worsening symptoms. I reviewed this with patient who reported understanding and agreed to plan. Lab Data 05/23/23 18:43 05/23/23 18:43 Radiology Impressions Chest X-Ray 05/23/23 18:27 IMPRESSION: No acute findings. Abdomen/Pelvis CT 05/23/23 19:40 IMPRESSION: 1. Minimal free pelvic fluid without clear etiology is of uncertain clinical significance. 2. Multiple pulmonary nodules, the largest averaging 7 mm. For patients at low risk (minimal or absent history of smoking and of other known risk factors), recommend CT Chest at 3-6 months, then consider CT Chest at 18-24 months. For patients at high risk (history of smoking or of other known risk factors), recommend CT Chest at 3-6 months, then CT Chest at 18-24 months. (Reference: Jayy) 3. Age indeterminate mild L2 anterior compression fracture. Stable T12 compression fracture. 4. Additional chronic and incidental findings as above, to include small to moderate hiatal hernia and colonic diverticulosis. COMMENTS: Consistent with the [employer]'s Incidental Findings Committee white paper (J Am Vel Radiol 2018): Any incidental renal lesion less than 1 cm or classified as too small to characterize, or any incidental cystic renal lesion characterized as simple-appearing, is likely benign. No follow-up imaging is recommended for these lesions per consensus recommendations based on imaging criteria. REFERENCES: Jayy Fong, et al. Guidelines for Management of Incidental Pulmonary Nodules Detected on CT Images: From the Fleischner Society 2017. Radiology. 2017;284(1):228-243. ADDENDUM: 05/23/232058 Addendum for additional impressionable item. Although urinary bladder wall thickening may be due to underdistention, correlate for evidence of cystitis. Laboratory Results WBC 7.1 10^3/uL (4.0-10.0) 05/23/23 18:43 RBC 3.82 10^6/uL (4.1-5.3) L 05/23/23 18:43 Hgb 11.6 g/dL (11.5-15.3) 05/23/23 18:43 Hct 37.1 % (37.0-47.0) 05/23/23 18:43 MCV 97.1 fl (81-99) 05/23/23 18:43 MCH 30.4 pg (28.0-34.0) 05/23/23 18:43 MCHC 31.3 g/dL (30.0-36.0) 05/23/23 18:43 RDW 14.4 % (12.1-15.1) 05/23/23 18:43 Plt Count 221 10^3/cmm (130-400) 05/23/23 18:43 MPV 10.7 fL (7.4-10.4) H 05/23/23 18:43 Neut % (Auto) 84.6 % 05/23/23 18:43 Lymph % (Auto) 7.3 % 05/23/23 18:43 Alfalfa % (Auto) 6.7 % 05/23/23 18:43 Eos % (Auto) 0.1 % 05/23/23 18:43 Baso % (Auto) 0.7 % 05/23/23 18:43 Neut # (Auto) 6.03 10^3/uL (1.8-7.7) 05/23/23 18:43 Lymph # (Auto) 0.5 10^3/uL (0.8-4.8) L 05/23/23 18:43 Alfalfa # (Auto) 0.5 10^3/uL (0.2-0.9) 05/23/23 18:43 Eos # (Auto) 0.0 10^3/uL (0.0-0.8) 05/23/23 18:43 Baso # (Auto) 0.1 10^3/uL (0.0-0.1) 05/23/23 18:43 Nucleated RBC % (auto) 0 % 05/23/23 18:43 Nucleated RBCs # 0.0 /100WBC 05/23/23 18:43 Sodium 135 mmol/L (136-145) L 05/23/23 18:43 Potassium 4.4 mmol/L (3.5-5.1) 05/23/23 18:43 Chloride 98 mmol/L (98-107) 05/23/23 18:43 Carbon Dioxide 27 mmol/L (22-29) 05/23/23 18:43 Anion Gap 14.4 (5-19) 05/23/23 18:43 BUN 12 mg/dL (8-23) 05/23/23 18:43 Creatinine 0.9 mg/dL (0.5-0.9) 05/23/23 18:43 GFR Calculation Not Reportable 05/23/23 18:43 Glucose 110 mg/dL (65-115) 05/23/23 18:43 Calculated Osmolality 280 mOsm/kg (285-295) L 05/23/23 18:43 Lactic Acid 1.4 mmol/L (0.5-2.2) 05/23/23 18:43 Calcium 9.3 mg/dL (8.5-10.5) 05/23/23 18:43 Total Bilirubin 0.2 mg/dL (0.15-1.2) 05/23/23 18:43 AST 17 U/L (0-32) 05/23/23 18:43 ALT 12 U/L (0-33) 05/23/23 18:43 Alkaline Phosphatase 52 U/L (35-105) 05/23/23 18:43 Total Protein 6.9 g/dL (6.6-8.7) 05/23/23 18:43 Albumin 3.9 g/dL (3.5-5.2) 05/23/23 18:43 Globulin 3.0 g/dL (1.3-4.6) 05/23/23 18:43 Urine Color Yellow (Yellow) 05/23/23 20:00 Urine Appearance Hazy (CLEAR) A 05/23/23 20:00 Urine pH 6 (5-7) 05/23/23 20:00 Ur Specific [place] 1.020 (1.005-1.030) 05/23/23 20:00 Urine Protein Neg (Negative) 05/23/23 20:00 Urine Glucose (UA) Norm (Normal) 05/23/23 20:00 Urine Ketones 1+ (Negative) H 05/23/23 20:00 Urine Blood 2+ (Negative) H 05/23/23 20:00 Urine Nitrate Negative (Negative) 05/23/23 20:00 Urine Bilirubin Neg (Negative) 05/23/23 20:00 Urine Urobilinogen Norm mg/dL (Negative) 05/23/23 20:00 Ur Leukocyte Esterase 1+ (Negative) H 05/23/23 20:00 Urine RBC 5-10 /hpf (0-2) H 05/23/23 20:00 Urine WBC 5-10 /hpf (0-5) H 05/23/23 20:00 Ur Squamous Epith Cells 5-10 /hpf (0-5) H 05/23/23 20:00 Amorphous Sediment Not Reportable 05/23/23 20:00 Urine Bacteria Trace /hpf (NONE) 05/23/23 20:00 Urine Mucus 4+ /hpf 05/23/23 20:00 SARS-CoV-2 Ag (Rapid) negative (Negative) 05/23/23 19:46 Discharge Plan Discharge Patient Disposition: Home Clinical Impression: Viral syndrome Condition: Stable Prescriptions: No Action cholecalciferol (vitamin D3) 1,000 unit capsule 1,000 unit PO QDAY calcium carbonate 500 mg calcium (1,250 mg) tablet 500 mg PO QDAY vitamin B complex [B Complex-Vitamin B12] Tablet 1 tab PO QDAY aspirin 81 mg tablet,delayed release (DR/EC) 81 mg PO QDAY cetirizine 10 mg tablet 10 mg PO QDAY Qty: 30 5RF furosemide 40 mg tablet 40 mg PO DAILY PRN (Reason: edema) Qty: 90 1RF Rx Instructions: Take 1 tablet by mouth once daily potassium chloride 10 mEq capsule, extended release 10 meq PO DAILY PRN (Reason: take with furosemide) Qty: 90 1RF Rx Instructions: Take 1 capsule by mouth once daily fluticasone propionate [Flonase Allergy Relief] 50 mcg/actuation spray,suspension 1 spray intranasal BID Qty: 16 5RF Rx Instructions: administer into each nostril nystatin 100,000 unit/gram ointment 1 applic topical BID PRN (Reason: rash under breast) 10 Days Qty: 30 0RF albuterol sulfate [Ventolin HFA] 90 mcg/actuation HFA aerosol inhaler 2 puff inhalation QID PRN (Reason: shortness of breath or wheezing) Qty: 8.5 0RF sulfamethoxazole-trimethoprim [Bactrim DS] 800-160 mg tablet 1 tab PO BID 10 Days Qty: 20 0RF citalopram 20 mg tablet See Rx Instructions .ROUTE .COMPLEX Qty: 45 1RF Dose Instruction: Take 1/2 (one-half) tablet by mouth once daily Rx Instructions: Take 1/2 (one-half) tablet by mouth once daily pantoprazole 40 mg tablet,delayed release (DR/EC) See Rx Instructions .ROUTE .COMPLEX Qty: 90 0RF Dose Instruction: Take 1 tablet by mouth once daily Rx Instructions: Take 1 tablet by mouth once daily alendronate 70 mg tablet See Rx Instructions .ROUTE .COMPLEX Qty: 12 0RF Dose Instruction: Take 1 tablet by mouth once a week Rx Instructions: Take 1 tablet by mouth once a week lisinopril 20 mg tablet See Rx Instructions .ROUTE .COMPLEX Qty: 90 0RF Dose Instruction: Take 1 tablet by mouth once daily Rx Instructions: Take 1 tablet by mouth once daily Multiple Vitamin, Womens Tablet 1 tab PO DAILY zinc 50 mg Capsule 50 mg PO DAILY Discharge Orders: Discharge ED (Routine); Ordered 05/23/23 Ordered By: Guzman Portillo Referrals: Sheeba Castro FNP [Primary Care Provider] - Discharge Diet: Usual diet Discharge Activity: Increase activity as tolerated Patient Instructions: Fever in Adults (ED) Activity Restrictions/Additional Instructions: Drink plenty of water and fluids. Stay well-hydrated. Continue with routine medications. Use acetaminophen and/or ibuprofen as needed for pain or fever. Follow-up with primary care in 2 to 3 days for recheck. Return to ER for worsening symptoms such as inability to hold fluids down, chest pain, shortness of breath, or new concerns. Coding Level of Care Code ED Group Therapy Counselor for Puma Martinez
--- NOTE | 2023-05-23 19:40 | CTR_ITS ---
PROCEDURE INFORMATION: Exam: CT Abdomen And Pelvis With Contrast Exam date and time: 05/23/2023 8:26 PM Age: 72 years old Clinical indication: Fever and nausea and vomiting; Prior surgery; Surgery date: 6+ months; Surgery type: Cholecystectomy, oophorectomy; Additional info: Fever, n/v TECHNIQUE: Imaging protocol: Computed tomography of the abdomen and pelvis with contrast. Radiation optimization: All CT scans at this facility use at least one of these dose optimization techniques: automated exposure control; mA and/or kV adjustment per patient size (includes targeted exams where dose is matched to clinical indication); or iterative reconstruction. Contrast material: OMNI 350; Contrast volume: 100 ml; Contrast route: INTRAVENOUS (IV); REPORTING DATA: Count of CT and Cardiac NM exams in prior 12 months: This patient has received 0 known CTs and 0 known cardiac nuclear medicine studies in the 12 months prior to the current study. COMPARISON: 1. US gall bladder [id number] 02/28/2022 7:19 AM 2. CR XR thoracic spine 3V* [id number] 04/27/2021 8:39 AM RADIATION DOSE METRICS: Total DLP (mGy-cm): 834.26 FINDINGS: Lungs: Multiple rounded pulmonary nodules at the lung bases, a couple calcified, the largest averaging 7 mm at the left lower lobe on axial image 9 of series 3. Heart: Mitral annular calcification. Diaphragm: Small to moderate hiatal hernia. Liver: Subcentimeter right hepatic hypodensity too small to completely characterize statistically likely represents a cyst. Otherwise unremarkable. Gallbladder and bile ducts: Prior cholecystectomy without biliary ductal dilatation. Pancreas: Normal. No ductal dilation. Spleen: Normal. No splenomegaly. Adrenal glands: Normal. No mass. Kidneys and ureters: Few bilateral subcentimeter renal hypodensities too small to completely characterize statistically likely represent cysts. Kidneys and ureters are otherwise unremarkable. Stomach and bowel: No bowel dilatation to suggest obstruction. Colonic diverticulosis without findings of diverticulitis. Appendix: No evidence of appendicitis. Intraperitoneal space: Minimal free pelvic fluid. No free air or rim enhancing fluid collection. Vasculature: Mild systemic atherosclerotic calcification without aneurysmal dilatation. Lymph nodes: Unremarkable. No enlarged lymph nodes. Urinary bladder: Underdistended urinary bladder with circumferential wall thickening. Reproductive: Unremarkable as visualized. Bones/joints: Diffusely demineralized bones. Stable T12 anterior compression fracture. Mild L2 anterior compression fracture involving the inferior endplate. Mild multilevel degenerative changes along the spine with grade 1 anterolisthesis of L4 on L5. Chronic appearing left pubic fracture. Soft tissues: Tiny fat containing supraumbilical hernia. CT/CT abdomen pelvis w con* [id number] IMPRESSION: 1. Minimal free pelvic fluid without clear etiology is of uncertain clinical significance. 2. Multiple pulmonary nodules, the largest averaging 7 mm. For patients at low risk (minimal or absent history of smoking and of other known risk factors), recommend CT Chest at 3-6 months, then consider CT Chest at 18-24 months. For patients at high risk (history of smoking or of other known risk factors), recommend CT Chest at 3-6 months, then CT Chest at 18-24 months. (Reference: Jayy) 3. Age indeterminate mild L2 anterior compression fracture. Stable T12 compression fracture. 4. Additional chronic and incidental findings as above, to include small to moderate hiatal hernia and colonic diverticulosis. COMMENTS: Consistent with the [employer]'s Incidental Findings Committee white paper (J Am Vel Radiol 2018): Any incidental renal lesion less than 1 cm or classified as too small to characterize, or any incidental cystic renal lesion characterized as simple-appearing, is likely benign. No follow-up imaging is recommended for these lesions per consensus recommendations based on imaging criteria. REFERENCES: Jayy Fong et al. Guidelines for Management of Incidental Pulmonary Nodules Detected on CT Images: From the Fleischner Society 2017. Radiology. 2017;284(1):228-243.
[2023-05-23 19:46] VITALS: BP 157/60; PULSE 89; RESP 18; O2SAT 98
[2023-05-23] MEDS: sodium chloride 0.9% 500 ML 999 ML IV (20:02)
[2023-05-23] MEDS: acetaminophen 500 mg Tablet 1000 MG PO (20:02)
[2023-05-23 20:14] LABS: Add Urine Microscopic? YES; Bilirubin Urine Neg (Negative); Blood Urine 2+ (Negative); Glucose Urine UA Norm (Normal); Ketones Urine 1+ (Negative); Leukocyte Esterase Urine 1+ (Negative); Nitrate Urine Negative (Negative); Protein Urine Neg (Negative); Urine Appearance Hazy (CLEAR); Urine Color Yellow (Yellow); Urobilinogen Urine Norm (Negative); pH Urine 6 (5-7)
[2023-05-23 20:16] LABS: Bacteria Urine TRACE /hpf; Mucus Urine 4+ /hpf
[2023-05-23 20:17] LABS: Add Urine Culture? No
[2023-05-23] MEDS: iohexol 350 mg/mL 500 mL Btl (per mL) IV (20:19)
[2023-05-23 20:33] LABS: SARS Covid-2 Antigen negative (Negative)
== END 2023-05-23 21:53 | disposition home or self-care (01) ==
PROVIDERS: Emergency Medicine; Emergency Provider Nurse Practitioner Family; PCP Nurse Practitioner Family
DX: B34.9 Viral infection, unspecified (principal)
CPT/HCPCS: 36415; 71045; 74177; 80053; 81001; 83605; 85025; 87040; 87426; 99285; J7040; Q9967

== ENCOUNTER → 2023-05-27 13:35 | Outpatient (BNVA) | payer BC, SELFPAY | PROVIDERS: PCP Nurse Practitioner Family; Visit Provider Nurse Practitioner Family | DX: R50.9 Fever, unspecified (principal); R91.1 Solitary pulmonary nodule | CPT/HCPCS: 80053; 81000; 84443; 85007; 85025; 85651; 86140; 86618; 86666; 86757 ==

== ENCOUNTER 2023-05-28 18:19 | Observation (INO) | payer BC, SELFPAY ==
[2023-05-28 18:27] VITALS: BP 125/62; PULSE 94; RESP 14; TEMP 36.8; O2SAT 97; BMI 37.3
--- NOTE | 2023-05-28 18:31 | ED_ITS ---
HPI - Recheck/Abnormal Lab/Rx General: Chief Complaint: Recheck/Abnormal Lab/Rx Stated Complaint: Dr sent to check blood Time Seen by Provider: 05/28/23 18:23 History of Present Illness: 72-year-old lady presenting for evaluation of abnormal labs. Patient was seen in the emergency department on 05/23 with 1 day history of generalized unwell feeling and fever. She notes vomiting x1 and headache. ED evaluation did not reveal acute cause and cause felt to be viral in nature. Patient has had continued symptoms with generalized malaise however fevers have resolved. She was seen by PCP yesterday and initiated on doxycycline. Labs revealed severe thrombocytopenia. She does endorse headache and atraumatic forehead bruising. She also notes continued myalgias. Course has persisted. No other specific changes in health, exacerbating, or alleviating factors identified. Review of Systems General: Reports: 10 or more systems reviewed and unremarkable except in HPI and below PFSH ED PFSH: Medical History DDD (degenerative disc disease) Depression GERD (gastroesophageal reflux disease) Hiatal hernia Urge incontinence Surgical History H/O colonoscopy (12/06/21) polyps, diverticulosis H/O esophagogastroduodenoscopy 12/08/2019: Hiatal hernia H/O total knee replacement bilateral History of cataract extraction History of oophorectomy one removed Hx of cholecystectomy Family History Mother Diabetes Brother Cancer Denies family history of Anesthesia complication Bleeding disorder Social History Smoking and tobacco status: never smoked Alcohol intake: never Substance/Drug Use: never Lives independently: Yes Household members: spouse Marital status: Current occupational status: employed Physical Exam Const: COMMON NORMALS: alert GENERAL APPEARANCE: cooperative and well developed HENMT: COMMON NORMALS: normocephalic and atraumatic HEAD & SCALP: normocephalic and atraumatic Eye: COMMON NORMALS: conjunctivae normal CONJUNCTIVA: Yes conjunctivae normal SCLERA: sclerae normal Neck/C-Spine: COMMON NORMALS: supple GENERAL: Yes trachea midline Resp: COMMON NORMALS: normal respiratory effort EFFORT & INSPECTION: Yes able to speak in complete sentences Cardio: COMMON NORMALS: regular rate and regular rhythm RATE: regular rate RHYTHM: regular rhythm GI: COMMON NORMALS: Soft to palpation PALPATION: Yes Soft to palpation and No Tenderness to palpation present (GI) Extremity: GENERAL: Yes normal exam except as noted and No edema Neuro: COMMON NORMALS: moves all extremities SENSORIUM/ORIENTATION: Yes alert and No Orientation impaired Psych: COMMON NORMALS: mental status grossly normal and Normal thought process present THOUGHT PROCESS: Normal thought process present Skin: NARRATIVE SKIN EXAM: Scattered petechiae bilateral lower extremities. Ecchymosis at site of previous venipuncture in the right upper extremity and right forearm ecchymosis which is isolated/noncircumferential and not hard to palpation. Course Vital Signs: Vital signs: Vital Signs Temperature 98.5 F 05/29/23 09:47 Pulse Rate 76 05/29/23 09:47 Respiratory Rate 16 05/29/23 09:47 Blood Pressure 99/59 05/29/23 09:47 Pulse Oximetry 94 05/29/23 09:47 Oxygen Delivery Me thod Room Air 05/29/23 08:26 MDM - Recheck/Abnormal Lab/Rx Medical Decision Making 72-year-old lady presenting due to abnormal labs. Exam as above. Nontoxic however somewhat ill in appearance. Labs reveal significant thrombocytopenia. Mild transaminitis present. Recent imaging reviewed. Given headache in the presence of severe t hrombocytopenia CT head ordered and was negative for intracranial hemorrhage or mass. Given severity of laboratory abnormalities patient requires in-hospital monitoring. The results of ED evaluation were discussed with the patient including plan for admission due to requirement for level of care not available if discharged to prevent significant worsening/deterioration. Patient agreeable with plan. Discussed with hospitalist service who was agreeable to admit patient. Medical Records I reviewed the patient's medical records. Lab Data I reviewed the patient's lab results. 05/29/23 04:40 05/29/23 04:[address] 05/28/23 19:09 IMPRESSION: Negative for intracranial hemorrhage mass effect. Laboratory Results WBC 3.3 10^3/uL (4.0-10.0) L 05/28/23 18:38 RBC 3.52 10^6/uL (4.1-5.3) L 05/28/23 18:38 Hgb 10.7 g/dL (11.5-15.3) L 05/28/23 18:38 Hct 34.8 % (37.0-47.0) L 05/28/23 18:38 MCV 98.9 fl (81-99) 05/28/23 18:38 MCH 30.4 pg (28.0-34.0) 05/28/23 18:38 MCHC 30.7 g/dL (30.0-36.0) 05/28/23 18:38 RDW 15.1 % (12.1-15.1) 05/28/23 18:38 Plt Count 24 10^3/cmm (130-400) L* D 05/28/23 18:38 MPV 12.7 fL (7.4-10.4) H 05/28/23 18:38 Lymph % (Auto) Not Reportable 05/28/23 18:38 Evangeline % (Auto) Not Reportable 05/28/23 18:38 Lymph # (Auto) Not Reportable 05/28/23 18:38 Evangeline # (Auto) Not Reportable 05/28/23 18:38 Total Counted 100 (0-100) 05/28/23 18:38 Atypical Lymphs % 3.0 % (0-5) 05/28/23 18:38 Absolute Neutrophils 1.7 10^3/cmm (1.4-6.5) 05/28/23 18:38 Segmented Neutrophils 49 % 05/28/23 18:38 Abs Segm Neuts (Man) 1.6 10/cmm (1.6-7.1) 05/28/23 18:38 Band Neutrophils 1.0 % 05/28/23 18:38 Abs Band Neuts (Man) 0.0 10^3/cmm (0.0-1.2) 05/28/23 18:38 Absolute Lymphocytes 1.1 10^3/cmm (1.2-3.4) L 05/28/23 18:38 Lymphocytes (Manual) 30 % 05/28/23 18:38 Monocytes (Manual) 4.0 % 05/28/23 18:38 Absolute Monocytes 0.1 10^3/cmm (0.1-0.6) 05/28/23 18:38 Eosinophils (Manual) 12 % 05/28/23 18:38 Absolute Eosinophils 0.3 10^3/cmm (0.0-0.7) 05/28/23 18:38 Basophils (Manual) 0.0 % 05/28/23 18:38 Absolute Basophils 0.0 10^3/cmm (0.0-0.2) 05/28/23 18:38 Metamyelocytes 0.0 % 05/28/23 18:38 Myelocytes 1.0 % 05/28/23 18:38 Promyelocytes 0.0 % 05/28/23 18:38 Nucleated RBCs 0.0 /100WBC (0-1) 05/28/23 18:38 Toxic Granulation 1+ H 05/28/23 18:38 Platelet Estimate Decreased (Normal) L 05/28/23 18:38 Peripher Smr Path Cons Sent for review 05/28/23 18:38 Haptoglobin 281.0 mg/L (30-200) H 05/28/23 18:38 PT 13.00 SECONDS (12.1-14.9) 05/28/23 18:38 INR 0.95 (0.8-1.2) 05/28/23 18:38 APTT 26.0 SECONDS (23.9-36.7) 05/28/23 18:38 Fibrinogen 439 mg/dL (174-498) 05/28/23 18:38 Sodium 141 mmol/L (136-145) 05/28/23 18:38 Potassium 4.9 mmol/L (3.5-5.1) 05/28/23 18:38 Chloride 109 mmol/L (98-107) H 05/28/23 18:38 Carbon Dioxide 24 mmol/L (22-29) 05/28/23 18:38 Anion Gap 12.9 (5-19) 05/28/23 18:38 BUN 34 mg/dL (8-23) H 05/28/23 18:38 Creatinine 0.8 mg/dL (0.5-0.9) 05/28/23 18:38 GFR Calculation Not Reportable 05/28/23 18:38 Glucose 101 mg/dL (65-115) 05/28/23 18:38 Calculated Osmolality 300 mOsm/kg (285-295) H 05/28/23 18:38 Calcium 9.2 mg/dL (8.5-10.5) 05/28/23 18:38 Total Bilirubin 0.2 mg/dL (0.15-1.2) 05/28/23 18:38 Direct Bilirubin 0.20 mg/dL (0.00-0.30) 05/28/23 18:38 AST 65 U/L (0-32) H 05/28/23 18:38 ALT 65 U/L (0-33) H 05/28/23 18:38 Alkaline Phosphatase 107 U/L (35-105) H 05/28/23 18:38 Total Protein 5.9 g/dL (6.6-8.7) L 05/28/23 18:38 Albumin 2.9 g/dL (3.5-5.2) L 05/28/23 18:38 Globulin 3.0 g/dL (1.3-4.6) 05/28/23 18:38 Nasal Influ A H1 2009 PCR Not detected (NOT DETECT) 05/28/23 19:22 Adenovirus (PCR) Not detected (NOT DETECT) 05/28/23 19:22 C. pneumoniae DNA (PCR) Not detected (NOT DETECT) 05/28/23 19:22 Coronavirus 229E (PCR) Not detected (NOT DETECT) 05/28/23 19:22 Human Metapneumovir PCR Not detected (NOT DETECT) 05/28/23 19:22 Influenza A (H1) PCR Not detected (NOT DETECT) 05/28/23 19:22 Influenza A (H3) PCR Not detected (NOT DETECT) 05/28/23 19:22 Influenza Type A (PCR) Not detected (NOT DETECT) 05/28/23 19:22 Influenza Type B (PCR) Not detected (NOT DETECT) 05/28/23 19:22 M. pneumoniae (PCR) Not detected (NOT DETECT) 05/28/23 19:22 Parainfluenza 1 (PCR) Not detected (NOT DETECT) 05/28/23 19:22 Parainfluenza 2 (PCR) Not detected (NOT DETECT) 05/28/23 19:22 Parainfluenza 3 (PCR) Not detected (NOT DETECT) 05/28/23 19:22 Parainfluenza 4 (PCR) Not detected (NOT DETECT) 05/28/23 19:22 RSV Type A (PCR) Not detected (NOT DETECT) 05/28/23 19:22 RSV Type B (PCR) Not detected (NOT DETECT) 05/28/23 19:22 Entero/Rhino (PCR) Not detected (NOT DETECT) 05/28/23 19:22 SARS-CoV-2 (PCR) Not detected (NOT DETECT) 05/28/23 19:22 Discharge Plan Discharge Patient Disposition: Placed in Observation Admit Provider: Micah Mclean Clinical Impression: Pancytopenia Discharge Diet: Cardiac Discharge Activity: Increase activity as tolerated Coding Level of Care Code ED Construction Project Assistant for Puma Martinez
[2023-05-28 18:54] LABS: Hematocrit 34.8 % (37.0-47.0); Hemoglobin 10.7 g/dL (11.5-15.3); Mean Corpuscular HGB Conc 30.7 g/dL (30.0-36.0); Mean Corpuscular Hemoglobin 30.4 pg (28.0-34.0); Mean Corpuscular Volume 98.9 fl (81-99); Mean Platelet Volume 12.7 fL (7.4-10.4); Red Blood Count 3.52 10^6/uL (4.1-5.3); Red Cell Distribution Width 15.1 % (12.1-15.1); White Blood Count 3.3 10^3/uL (4.0-10.0)
[2023-05-28 19:02] LABS: Platelet Count 24 10^3/cmm (130-400)
[2023-05-28 19:03] LABS: Slide Review Slide Review Perform
[2023-05-28 19:08] LABS: INR 0.95 (0.8-1.2)
--- NOTE | 2023-05-28 19:09 | CTR_ITS ---
PROCEDURE INFORMATION: Exam: CT Head Without Contrast Exam date and time: 05/28/2023 7:39 PM Age: 72 years old Clinical indication: Pain; Headache; Additional info: Headache, severe thrombocytopenia TECHNIQUE: Imaging protocol: Computed tomography of the head without contrast. Radiation optimization: All CT scans at this facility use at least one of these dose optimization techniques: automated exposure control; mA and/or kV adjustment per patient size (includes targeted exams where dose is matched to clinical indication); or iterative reconstruction. REPORTING DATA: Count of CT and Cardiac NM exams in prior 12 months: This patient has received [address] and 0 known cardiac nuclear medicine studies in the 12 months prior to the current study. COMPARISON: CR XR cervical spine 3V* [id number] 07/19/2020 4:09 PM RADIATION DOSE METRICS: Total DLP (mGy-cm): 1012.28 FINDINGS: Brain: Large amount of diffuse white matter disease likely reflecting chronic microvascular ischemic changes. Cerebral ventricles: No ventriculomegaly. Paranasal sinuses: Visualized sinuses are unremarkable. No fluid levels. Mastoid air cells: Visualized mastoid air cells are well aerated. Bones/joints: Unremarkable. No acute fracture. Soft tissues: Unremarkable. CT/CT head wo con* [id number] IMPRESSION: Negative for intracranial hemorrhage mass effect.
[2023-05-28 19:10] LABS: Fibrinogen 439 mg/dL (174-498)
[2023-05-28 19:12] LABS: Anion Gap 12.9 (5-19); Blood Urea Nitrogen 34 mg/dL (8-23); Calcium 9.2 mg/dL (8.5-10.5); Carbon Dioxide 24 mmol/L (22-29); Chloride 109 mmol/L (98-107); Glucose 101 mg/dL (65-115); Osmolality Calculated 300 mOsm/kg (285-295); Potassium 4.9 mmol/L (3.5-5.1); Sodium 141 mmol/L (136-145)
[2023-05-28 19:33] LABS: Absolute Eosinophils 0.3 10^3/cmm (0.0-0.7); Absolute Neutrophil 1.7 10^3/cmm (1.4-6.5); Absolute Segmented Neutrophil 1.6 10/cmm (1.6-7.1); Eosinophils 12 %; Lymphocytes 30 %; Lymphocytes Absolute 1.1 10^3/cmm (1.2-3.4); Monocytes Absolute 0.1 10^3/cmm (0.1-0.6); Platelet Estimate Decreased (Normal); Segmented Neutrophils 49 %; Total Cells Counted 100 (0-100); Toxic Granulation 1+
[2023-05-28 19:34] LABS: LAB Peripheral Smear Sent for Review
[2023-05-28 21:17] LABS: Adenovirus Not Detected (NOT DETECT); Chlamydia Pneumoniae Not Detected (NOT DETECT); Coronavirus 229E,HKU1,NL63,OC4 Not Detected (NOT DETECT); Human Metapneumovirus Not Detected (NOT DETECT); Human Rhinovirus/Enterovirus Not Detected (NOT DETECT); Influenza A Not Detected (NOT DETECT); Influenza A H1 Not Detected (NOT DETECT); Influenza A H1-2009 Not Detected (NOT DETECT); Influenza A H3 Not Detected (NOT DETECT); Influenza B Not Detected (NOT DETECT); Mycoplasma Pneumoniae Not Detected (NOT DETECT); Parainfluenza Virus Type 1 Not Detected (NOT DETECT); Parainfluenza Virus Type 2 Not Detected (NOT DETECT); Parainfluenza Virus Type 3 Not Detected (NOT DETECT); Parainfluenza Virus Type 4 Not Detected (NOT DETECT); Respiratory Syncytial Virus A Not Detected (NOT DETECT); Respiratory Syncytial Virus B Not Detected (NOT DETECT); SARS-COV-2 Not Detected (NOT DETECT)
--- NOTE | 2023-05-28 21:23 | P.HP_ITS ---
Providers/Chief Complaint Admitting Physician: Micah Mclean MD Primary Care Provider: ADRIANA Waddell Chief Complaint: Dr sent to check blood History of Present Illness Anyi Shoemaker is a 72 year old female presenting from home to the emergency department secondary to abnormal labs consisting of leukopenia and thrombocytopenia. History timeline is as follows. On May 15, she was seen by her primary care provider for cellulitis. Bactrim was prescribed appropriately. Patient was given approximately 10 days of medicine and was taking this when she arrived for an emergency department visit on May 23 with fever, lethargy. At that time her legs had already improved. She complained of joint pain, neck pain, headache. An extensive work-up was obtained. White blood cell count and platelet count were normal at that time. A blood culture was drawn. She was discharged home, to follow-up with her primary care provider. Patient believes that she may have taken a dose of Bactrim following this ER visit or it could have ended around then. She saw her primary care provider on 27 May, and there was concern for possible tick fever secondary to symptomatology, and ultimately lab demonstrated a significantly low platelet count where she was referred to the emergency department today. She was given doxycycline. By the time she was seen by her primary care provider, her fever had already gone away. She reported to me that her body aches seemed much improved. She denied any sore throat or significant headache. She was still fatigued. She has only had 2 doses of doxycycline. Today she reports she feels much better. She has had no fever. Her joint aching has gone away. She denies any blood in her stool, black or tarry stools, skin rash, nosebleeds or any kind of spontaneous bleeding. Review of Systems General: Reports: 10 or more systems reviewed and unremarkable except in HPI and below Card: Denies: chest pain Resp: Denies: dyspnea GI: Denies: abdominal pain, nausea or vomiting Medications/Allergies Home Medications Medication Instructions Recorded Confirmed Last Taken Type aspirin 81 mg tablet,delayed 81 mg PO QDAY 12/03/19 05/27/23 07/25/22 History release calcium carbonate 500 mg calcium 500 mg PO QDAY 12/03/19 05/27/23 07/25/22 History (1,250 mg) tablet cholecalciferol (vitamin D3) 25 1,000 unit PO QDAY 01/05/27/23 12/05/21 History mcg (1,000 unit) capsule vitamin B complex (B 1 tab PO QDAY 12/03/19 05/27/23 07/25/22 History Complex-Vitamin B12 tablet) jqvvljgednjy-Qv-rxjc-minerals 1 tab PO DAILY 06/27/20 05/27/23 12/04/21 History (Multiple Vitamin, Womens tablet) cetirizine 10 mg tablet 10 mg PO QDAY #30 tabs 02/14/21 05/27/23 07/25/22 Rx zinc 50 mg capsule 50 mg PO DAILY 12/04/21 05/27/23 07/25/22 History fluticasone propionate 50 1 spray intranasal BID #16 grams 02/13/22 05/27/23 Unknown Rx mcg/actuation nasal spray,suspension (Flonase Allergy Relief) furosemide 40 mg tablet 40 mg PO DAILY PRN edema #90 tabs 02/13/22 05/27/23 Unknown Rx potassium chloride 10 mEq 10 meq PO DAILY PRN take with 02/13/22 05/27/23 Unknown Rx capsule,extended release furosemide #90 caps albuterol sulfate 90 mcg/actuation 2 puff inhalation QID PRN 10/09/22 05/27/23 Unknown Rx aerosol inhaler (Ventolin HFA) shortness of breath or wheezing #8.5 grams nystatin 100,000 unit/gram topical 1 applic topical BID PRN rash 01/23/23 05/27/23 Unknown Rx ointment under breast 10 days #30 grams citalopram 20 mg tablet See Rx Instructions .Route 03/22/23 05/27/23 Unknown Rx .COMPLEX #45 tabs pantoprazole 40 mg tablet,delayed See Rx Instructions .Route 04/17/23 05/27/23 Unknown Rx release .COMPLEX #90 tabs alendronate 70 mg tablet See Rx Instructions .Route 05/10/23 05/27/23 Unknown Rx .COMPLEX #12 tabs lisinopril 20 mg tablet See Rx Instructions .Route 05/15/23 05/27/23 Unknown Rx .COMPLEX #90 tabs sulfamethoxazole 800 1 tab PO BID 10 days #20 tabs 05/15/23 05/27/23 Unknown Rx mg-trimethoprim 160 mg tablet (Bactrim DS) doxycycline hyclate 100 mg capsule 100 mg PO BID 10 days #20 caps 05/27/23 05/27/23 Unknown Rx Allergies Allergy/AdvReac Type Severity Reaction Status Date / Time naproxen [From Aleve] Allergy ALGY-Rash Verified 05/28/23 18:27 tuberculin, purified protein Allergy ALGY-Rash Verified 05/28/23 18:27 deriva [From Tubersol] PFSH Acute PFSH: Medical History DDD (degenerative disc disease) Depression GERD (gastroesophageal reflux disease) Hiatal hernia Urge incontinence Surgical History H/O colonoscopy (12/06/21) polyps, diverticulosis H/O esophagogastroduodenoscopy 12/08/2019: Hiatal hernia H/O total knee replacement bilateral History of cataract extraction History of oophorectomy one removed Hx of cholecystectomy Family History Mother Diabetes Brother Cancer Denies family history of Anesthesia complication Bleeding disorder Social History Smoking and tobacco status: never smoked Alcohol intake: never Substance/Drug Use: never Lives independently: Yes Household members: spouse Marital status: Current occupational status: employed Vitals/I&O/Wt Last Vital Signs Temp 98.2 F 05/28/23 18:27 Pulse 94 05/28/23 18:27 Resp 14 05/28/23 18:27 BP 125/62 05/28/23 18:27 Pulse Ox 97 05/28/23 18:27 O2 Del Method Room Air 05/28/23 18:27 Weight last 48 hrs Weight 92.533 kg Physical Exam Narrative: General exam is a white female, no distress, conversant with normal vitals. HEENT: Atraumatic and normocephalic. Oropharynx clear Neck is supple no lymphadenopathy thyromegaly Cardiovascular regular rate and rhythm without murmur Lungs clear no wheezing or crackles. Abdomen is soft nontender positive bowel sounds. No obvious organomegaly exams deferred Extremities no cyanosis clubbing or edema, cap refill brisk. No palmar or pl maryam erythema Skin no rash Neuro no focal deficits Data 05/28/23 18:38 05/28/23 18:38 Other Labs: Platelet count of 24,000 today is improved from 15,000 on the . Lymphopenia is noted. DIC panel is normal. No eosinophilia is noted Creatinine that was elevated on the yesterday is now improved at 0.8 I have ordered LFTs, and a haptoglobin level to compare with previous lab The urinalysis from yesterday demonstrated trace blood, concentrated urine A viral panel is negative A tick panel from yesterday is pending A previous COVID rapid was negative A blood culture on her first presentation is negative Head CT done today no acute changes CT abdomen and pelvis from the demonstrates some minimal pelvic fluid, some pulmonary nodules with consideration for follow-up which is already been relayed to the patient, and a chest x-ray with no acute findings A&P Assessment and plan (1) Thrombocytopenia: She has severe thrombocytopenia, which appears to be likely improving. 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 She has evidence of leukopenia. She previously had fever, and significant joint pain which may have heralded the start of her thrombocytopenia. I believe that tickborne illness is highly unlikely, given the fact she was already significantly symptomatically better when doxycycline was prescribed, and that she has only had 2 doses. It appears her thrombocytopenia may be already improving, which if she stopped the Bactrim around the this would be consistent with immune thrombocytopenia, drug-induced. She did have renal dysfunction as well, which is already improving. I have ordered a haptoglobin, and repeat LFTs At this point I will hydrate her. I do not think further doxycycline is needed. I have visited with the family extensively regarding her likely diagnosis. As she is clinically improving, not having active bleeding, I do not feel the need to give IVIG or high-dose steroids. With their concerns in mind, and her rather severe thrombocytopenia I believe it is reasonable to observe her overnight, rechecking her laboratory in the morning, and if she continues to remain rather asymptomatic, with increasing platelets discharge her home. Hold her aspirin Continue Protonix. I do not believe this caused her thrombocytopenia Plan Multiple other medical problems as outlined in past medical history Full code SCDs for DVT prophylaxis. No anticoagulation secondary to thrombocytopenia Attestations Medical Necessity Statement*: Will need less than 2 midnight stay for evaluation and treatment of thrombocytopenia and High Time for a total of 91 minutes, includes reviewing past or interval history, examining/interviewing patient, placing orders, counseling patient/family/other support, communicating with other healthcare providers and documenting encounter Diagnoses Thrombocytopenia D69.6
[2023-05-28 21:34] VITALS: BP 151/71; PULSE 83; O2SAT 99
[2023-05-28 22:40] VITALS: BP 101/64; PULSE 86; RESP 17; TEMP 37; O2SAT 91
[2023-05-28] MEDS: sodium chloride 0.9% 1,000 ML 50 ML IV (23:31)
[2023-05-29] VITALS: BP 101/64; PULSE 96; RESP 17; TEMP 37; O2SAT 91
[2023-05-29 00:25] LABS: Alanine Aminotransferase 65 U/L (0-33); Albumin Level 2.9 g/dL (3.5-5.2); Alkaline Phosphatase 107 U/L (35-105); Aspartate Amino Transferase 65 U/L (0-32); Total Bilirubin 0.2 mg/dL (0.15-1.2); Total Protein 5.9 g/dL (6.6-8.7)
[2023-05-29 03:53] VITALS: BP 107/66; PULSE 79; RESP 16; TEMP 37; O2SAT 93
[2023-05-29 05:16] LABS: Basophils % 1.4 %; Eosinophils # 0.4 10^3/uL (0.0-0.8); Eosinophils % 13.8 %; Hematocrit 30.6 % (37.0-47.0); Hemoglobin 9.6 g/dL (11.5-15.3); Lymphocytes # 1.1 10^3/uL (0.8-4.8); Lymphocytes % 39.4 %; Mean Corpuscular HGB Conc 31.4 g/dL (30.0-36.0); Mean Corpuscular Hemoglobin 30.3 pg (28.0-34.0); Mean Corpuscular Volume 96.5 fl (81-99); Mean Platelet Volume 12.5 fL (7.4-10.4); Monocytes # 0.3 10^3/uL (0.2-0.9); Monocytes % 9.7 %; Neutrophils # 1.01 10^3/uL (1.8-7.7); Nucleated Red Blood Cells % 0 %; Platelet Count 36 10^3/cmm (130-400); Red Blood Count 3.17 10^6/uL (4.1-5.3); White Blood Count 2.9 10^3/uL (4.0-10.0)
[2023-05-29 05:43] LABS: Slide Review Slide Review Perform
[2023-05-29 06:00] LABS: Alanine Aminotransferase 77 U/L (0-33); Albumin Level 2.8 g/dL (3.5-5.2); Alkaline Phosphatase 92 U/L (35-105); Aspartate Amino Transferase 86 U/L (0-32); Blood Urea Nitrogen 22 mg/dL (8-23); Calcium 8.8 mg/dL (8.5-10.5); Carbon Dioxide 26 mmol/L (22-29); Chloride 111 mmol/L (98-107); Globulin 2.1 g/dL (1.3-4.6); Glucose 85 mg/dL (65-115); Osmolality Calculated 299 mOsm/kg (285-295); Sodium 143 mmol/L (136-145); Total Bilirubin 0.2 mg/dL (0.15-1.2); Total Protein 4.9 g/dL (6.6-8.7)
--- NOTE | 2023-05-29 07:15 | PM.DCS ---
Discharge Providers Date of Admission: 05/28/23 21:22 Date of Discharge: May 29, 2023 Attending Provider at Admission: Micah Mclean MD Attending Provider at Discharge: Micah Mclean MD Primary Care Provider: ADRIANA Waddell Diagnoses at Discharge Discharge Diagnosis (1) Thrombocytopenia: Status: Acute Reason for Visit Reason for Visit: sent to check blood Hospital Course Hospital Course Anyi is a 72-year-old white female who presented to the emergency department after a phone call her platelets were significantly low. She had originally been treated with Bactrim for a cellulitis on her lower extremities on May 15. She presented to the ER with lethargy and fever on May 23, her legs being improved at that time. She also had joint pain, and headache. Bactrim stopped around that time. On May 27 she saw her primary care provider for follow-up and doxycycline was initiated for concerns of the possibility of tick fever. By that time she had markedly improved and was not having any more fevers. During that visit she was found to have significant thrombocytopenia. Platelets were repeated the next day, and slightly increased from the 15 range to around the 24 range. She had no history of any tick bite that she could remember. She had only gotten 1 or 2 doses of doxycycline. 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 I listed this as an allergy, admitted her under observation category. The following day her platelet count had increased up to around 36,000. Leukopenia and mild anemia, mild transaminitis were still present. I suspect her platelet count will continue to climb. I do not think doxycycline is needed at this time. She was instructed to follow-up with her primary care provider in 2 days with a CBC and CMP. She is to return for any bleeding, or worsening. She was given an opportunity ask questions, and agreed with the plan. Physical Exam Narrative: General exam no distress Neck is supple Cardiovascular regular rate and rhythm without murmur Lungs clear Abdomen is soft Extremities no cyanosis clubbing or edema Discharge Data Studies Completed and Pending Completed Studies During Hospitalization Category Date Time Status CT head wo con* [id number] Stat Cat Scan 05/28/23 19:09 Completed Radiology Impressions Head CT 05/28/23 19:09 IMPRESSION: Negative for intracranial hemorrhage mass effect. Laboratory Results WBC 2.9 10^3/uL (4.0-10.0) L 05/29/23 04:40 RBC 3.17 10^6/uL (4.1-5.3) L 05/29/23 04:40 Hgb 9.6 g/dL (11.5-15.3) L 05/29/23 04:40 Hct 30.6 % (37.0-47.0) L 05/29/23 04:40 MCV 96.5 fl (81-99) 05/29/23 04:40 MCH 30.3 pg (28.0-34.0) 05/29/23 04:40 MCHC 31.4 g/dL (30.0-36.0) 05/29/23 04:40 RDW 15.0 % (12.1-15.1) 05/29/23 04:40 Plt Count 36 10^3/cmm (130-400) L D 05/29/23 04:40 MPV 12.5 fL (7.4-10.4) H 05/29/23 04:40 Neut % (Auto) 35.0 % 05/29/23 04:40 Lymph % (Auto) 39.4 % 05/29/23 04:40 Ritchie % (Auto) 9.7 % 05/29/23 04:40 Eos % (Auto) 13.8 % 05/29/23 04:40 Baso % (Auto) 1.4 % 05/29/23 04:40 Neut # (Auto) 1.01 10^3/uL (1.8-7.7) L 05/29/23 04:40 Lymph # (Auto) 1.1 10^3/uL (0.8-4.8) 05/29/23 04:40 Ritchie # (Auto) 0.3 10^3/uL (0.2-0.9) 05/29/23 04:40 Eos # (Auto) 0.4 10^3/uL (0.0-0.8) 05/29/23 04:40 Baso # (Auto) 0.0 10^3/uL (0.0-0.1) 05/29/23 04:40 Nucleated RBC % (auto) 0 % 05/29/23 04:40 Total Counted 100 (0-100) 05/28/23 18:38 Atypical Lymphs % 3.0 % (0-5) 05/28/23 18:38 Absolute Neutrophils 1.7 10^3/cmm (1.4-6.5) 05/28/23 18:38 Segmented Neutrophils 49 % 05/28/23 18:38 Abs Segm Neuts (Man) 1.6 10/cmm (1.6-7.1) 05/28/23 18:38 Band Neutrophils 1.0 % 05/28/23 18:38 Abs Band Neuts (Man) 0.0 10^3/cmm (0.0-1.2) 05/28/23 18:38 Absolute Lymphocytes 1.1 10^3/cmm (1.2-3.4) L 05/28/23 18:38 Lymphocytes (Manual) 30 % 05/28/23 18:38 Monocytes (Manual) 4.0 % 05/28/23 18:38 Absolute Monocytes 0.1 10^3/cmm (0.1-0.6) 05/28/23 18:38 Eosinophils (Manual) 12 % 05/28/23 18:38 Absolute Eosinophils 0.3 10^3/cmm (0.0-0.7) 05/28/23 18:38 Basophils (Manual) 0.0 % 05/28/23 18:38 Absolute Basophils 0.0 10^3/cmm (0.0-0.2) 05/28/23 18:38 Metamyelocytes 0.0 % 05/28/23 18:38 Myelocytes 1.0 % 05/28/23 18:38 Promyelocytes 0.0 % 05/28/23 18:38 Nucleated RBCs 0.0 /100WBC (0-1) 05/28/23 18:38 Nucleated RBCs # 0.0 /100WBC 05/29/23 04:40 Toxic Granulation 1+ H 05/28/23 18:38 Platelet Estimate Decreased (Normal) L 05/28/23 18:38 Peripher Smr Path Cons Sent for review 05/28/23 18: Haptoglobin 281.0 mg/L (30-200) H 05/28/23 18:38 PT 13.00 SECONDS (12.1-14.9) 05/28/23 18:38 INR 0.95 (0.8-1.2) 05/28/23 18:38 APTT 26.0 SECONDS (23.9-36.7) 05/28/23 18:38 Fibrinogen 439 mg/dL (174-498) 05/28/23 18:38 Sodium 143 mmol/L (136-145) 05/29/23 04:40 Potassium 5.0 mmol/L (3.5-5.1) 05/29/23 04:40 Chloride 111 mmol/L (98-107) H 05/29/23 04:40 Carbon Dioxide 26 mmol/L (22-29) 05/29/23 04:40 Anion Gap 11.0 (5-19) 05/29/23 04:40 BUN 22 mg/dL (8-23) 05/29/23 04:40 Creatinine 0.7 mg/dL (0.5-0.9) 05/29/23 04:40 GFR Calculation Not Reportable 05/29/23 04:40 Glucose 85 mg/dL (65-115) 05/29/23 04:40 Calculated Osmolality 299 mOsm/kg (285-295) H 05/29/23 04:40 Calcium 8.8 mg/dL (8.5-10.5) 05/29/23 04:40 Total Bilirubin 0.2 mg/dL (0.15-1.2) 05/29/23 04:40 Direct Bilirubin 0.20 mg/dL (0.00-0.30) 05/28/23 18:38 AST 86 U/L (0-32) H 05/29/23 04:40 ALT 77 U/L (0-33) H 05/29/23 04:40 Alkaline Phosphatase 92 U/L (35-105) 05/29/23 04:40 Total Protein 4.9 g/dL (6.6-8.7) L 05/29/23 04:40 Albumin 2.8 g/dL (3.5-5.2) L 05/29/23 04:40 Globulin 2.1 g/dL (1.3-4.6) 05/29/23 04:40 Nasal Influ A H1 2008 PCR Not detected (NOT DETECT) 05/28/23 19:22 Adenovirus (PCR) Not detected (NOT DETECT) 05/28/23 19: C. pneumoniae DNA (PCR) Not detected (NOT DETECT) 05/28/23 19:22 Coronavirus 229E (PCR) Not detected (NOT DETECT) 05/28/23 19:22 Human Metapneumovir PCR Not detected (NOT DETECT) 05/28/23 19:22 Influenza A (H1) PCR Not detected (NOT DETECT) 05/28/23 19:22 Influenza A (H3) PCR Not detected (NOT DETECT) 05/28/23 19:22 Influenza Type A (PCR) Not detected (NOT DETECT) 05/28/23 19:22 Influenza Type B (PCR) Not detected (NOT DETECT) 05/28/23 19:22 M. pneumoniae (PCR) Not detected (NOT DETECT) 05/28/23 19:22 Parainfluenza 1 (PCR) Not detected (NOT DETECT) 05/28/23 19:22 Parainfluenza 2 (PCR) Not detected (NOT DETECT) 05/28/23 19:22 Parainfluenza 3 (PCR) Not detected (NOT DETECT) 05/28/23 19:22 Parainfluenza 4 (PCR) Not detected (NOT DETECT) 05/28/23 19:22 RSV Type A (PCR) Not detected (NOT DETECT) 05/28/23 19:22 RSV Type B (PCR) Not detected (NOT DETECT) 05/28/23 19:22 Entero/Rhino (PCR) Not detected (NOT DETECT) 05/28/23 19:22 SARS-CoV-2 (PCR) Not detected (NOT DETECT) 05/28/23 19:22 Vitals Last Vital Signs Temp 98.6 F 05/29/23 03:53 Pulse 79 05/29/23 03:53 Resp 16 05/29/23 03:53 BP 107/66 05/29/23 03:53 Pulse Ox 93 05/29/23 03:53 O2 Del Method Room Air 05/29/23 03:53 Discharge Plan Discharge Patient Disposition: Home Condition: Stable Prescriptions: Continued cholecalciferol (vitamin D3) 1,000 unit capsule 1,000 unit PO QDAY calcium carbonate 500 mg calcium (1,250 mg) tablet 500 mg PO QDAY vitamin B complex [B Complex-Vitamin B12] Tablet 1 tab PO QDAY cetirizine 10 mg tablet 10 mg PO QDAY Qty: 30 5RF furosemide 40 mg tablet 40 mg PO DAILY PRN (Reason: edema) Qty: 90 1RF Rx Instructions: Take 1 tablet by mouth once daily potassium chloride 10 mEq capsule, extended release 10 meq PO DAILY PRN (Reason: take with furosemide) Qty: 90 1RF Rx Instructions: Take 1 capsule by mouth once daily fluticasone propionate [Flonase Allergy Relief] 50 mcg/actuation spray,suspension 1 spray intranasal BID Qty: 16 5RF Rx Instructions: administer into each nostril nystatin 100,000 unit/gram ointment 1 applic topical BID PRN (Reason: rash under breast) 10 Days Qty: 30 0RF albuterol sulfate [Ventolin HFA] 90 mcg/actuation HFA aerosol inhaler 2 puff inhalation QID PRN (Reason: shortness of breath or wheezing) Qty: 8.5 0RF citalopram 20 mg tablet See Rx Instructions .ROUTE .COMPLEX Qty: 45 1RF Dose Instruction: Take 1/2 (one-half) tablet by mouth once daily Rx Instructions: Take 1/2 (one-half) tablet by mouth once daily pantoprazole 40 mg tablet,delayed release (DR/EC) See Rx Instructions .ROUTE .COMPLEX Qty: 90 0RF Dose Instruction: Take 1 tablet by mouth once daily Rx Instructions: Take 1 tablet by mouth once daily alendronate 70 mg tablet See Rx Instructions .ROUTE .COMPLEX Qty: 12 0RF Dose Instruction: Take 1 tablet by mouth once a week Rx Instructions: Take 1 tablet by mouth once a week lisinopril 20 mg tablet See Rx Instructions .ROUTE .COMPLEX Qty: 90 0RF Dose Instruction: Take 1 tablet by mouth once daily Rx Instructions: Take 1 tablet by mouth once daily Multiple Vitamin, Womens Tablet 1 tab PO DAILY zinc 50 mg Capsule 50 mg PO DAILY Discontinued aspirin 81 mg tablet,delayed release (DR/EC) 81 mg PO QDAY doxycycline hyclate 100 mg capsule 100 mg PO BID 10 Days Qty: 20 0RF sulfamethoxazole-trimethoprim [Bactrim DS] 800-160 mg tablet 1 tab PO BID 10 Days Qty: 20 0RF Discharge Orders: Discharge Order (Routine); Ordered 05/29/23 Ordered By: Micah Mclean Referrals: Sheeba Castro FNP [Primary Care Provider] - 1-3 days (CBC on Saturday) Discharge Diet: Cardiac Discharge Activity: Increase activity as tolerated Patient Instructions: Opioid Safety Activity Restrictions/Additional Instructions: Consider sulfa/Bactrim as severe allergy Follow-up with your primary care provider on Saturday with a CBC for recheck of your low platelets, white blood cell count and hemoglobin Any bleeding, fever. Discharge Attestations Time Spent in Discharge Care*: greater than 30 min Quality Metrics Clinical Quality Measures [ No reported AMI, CVA or VTE this stay] Coding Level of Care Code 88824 Total time (in minutes) for Discharge: 35 Diagnoses Thrombocytopenia D69.6
[2023-05-29 07:51] VITALS: BP 99/59; PULSE 79; RESP 18; TEMP 36.9; O2SAT 92
[2023-05-29 08:26] VITALS: PULSE 76; RESP 16; O2SAT 94
[2023-05-29] MEDS: pantoprazole DR 40 mg Tablet PO (08:40)
[2023-05-29 09:47] VITALS: BP 99/59; PULSE 76; RESP 16; TEMP 36.9; O2SAT 94
== END 2023-05-29 09:48 | disposition home or self-care (01) ==
LOC: ER 21:38 → MEDSURG 21:47
PROVIDERS: Emergency Medicine; Admitting Provider Internal Medicine; Emergency Provider Emergency Medicine; PCP Nurse Practitioner Family; Visit Provider Internal Medicine
DX: D69.6 Thrombocytopenia, unspecified (principal); D72.819 Decreased white blood cell count, unspecified; Z79.82 Long term (current) use of aspirin; K21.9 Gastro-esophageal reflux disease without esophagitis
CPT/HCPCS: 36415; 70450; 80048; 80053; 80076; 80503; 83010; 85007; 85025; 85384; 85610; 85730; 87486; 87581; 87633; 96360; 99285; G0378; J7030

== ENCOUNTER → 2023-05-31 10:33 | Outpatient (BNVA) | payer BC, SELFPAY | PROVIDERS: PCP Nurse Practitioner Family; Visit Provider Nurse Practitioner Family | DX: D69.6 Thrombocytopenia, unspecified (principal) | CPT/HCPCS: 85025 ==

== ENCOUNTER → 2023-06-03 11:25 | Outpatient (BNVA) | payer BC, SELFPAY | PROVIDERS: PCP Nurse Practitioner Family; Visit Provider Nurse Practitioner Family | DX: D61.818 Other pancytopenia (principal); D69.6 Thrombocytopenia, unspecified; R79.89 Other specified abnormal findings of blood chemistry | CPT/HCPCS: 80053; 85025 ==

== ENCOUNTER 2023-07-26 11:41 | Outpatient (CLI) | payer MEDICARE, SELFPAY ==
--- NOTE | 2023-07-26 12:00 | CTR_ITS ---
PROCEDURE INFORMATION: Exam: CT Chest Without Contrast; Diagnostic Exam date and time: 07/26/2023 12:20 PM Age: 72 years old Clinical indication: Abnormal findings; Abnormal radiologic exam of lung or chest; Prior surgery; Surgery date: 6+ months; Surgery type: Gallbladder removal / ovary removal; Additional info: R91.1 - solitary pulmonary nodule TECHNIQUE: Imaging protocol: Diagnostic computed tomography of the chest without contrast. Radiation optimization: All CT scans at this facility use at least one of these dose optimization techniques: automated exposure control; mA and/or kV adjustment per patient size (includes targeted exams where dose is matched to clinical indication); or iterative reconstruction. REPORTING DATA: Count of CT and Cardiac NM exams in prior 12 months: This patient has received 2 known CTs and 0 known cardiac nuclear medicine studies in the 12 months prior to the current study. COMPARISON: CR (CHEST, ) 05/23/2023 6:44 PM RADIATION DOSE METRICS: Total DLP (mGy-cm): 481.79 FINDINGS: Lungs: Right lower lobe 5.2 mm and left lower lobe 5.2 mm pulmonary noduls. Lingular subsegmental atelectasis versus infiltrate. Pleural spaces: Unremarkable. No pneumothorax. No pleural effusion. Heart: Unremarkable. No cardiomegaly. No pericardial effusion. Coronary arteries: Coronary artery atherosclerotic calcifications Lymph nodes: Unremarkable. No enlarged lymph nodes. Vasculature: Unremarkable. No aortic aneurysm. Diaphragm: Small hiatal hernia. Gallbladder and bile ducts: Cholecystectomy. Stomach and bowel: Diverticulosis without diverticulitis. Bones/joints: T8, T12 and L1 vertebral body compression fractures, age indeterminate. T12 fracture demonstrates minimal retropulsion of bony fragments with very mild spinal canal narrowing. Soft tissues: Unremarkable. CT/CT chest wo con [id number] IMPRESSION: 1. Right lower lobe 5.2 mm and left lower lobe 5.2 mm pulmonary noduls. For patients at low risk (minimal or absent history of smoking and of other known risk factors), no routine follow-up is indicated. For patients at high risk (history of smoking or of other known risk factors), consider optional CT Chest at 12 months. (Reference: Jayy) 2. Lingular subsegmental atelectasis versus infiltrate. 3. T8, T12 and L1 vertebral body compression fractures, age indeterminate. T12 fracture demonstrates minimal retropulsion of bony fragments with very mild spinal canal narrowing. 4. Coronary artery atherosclerotic calcifications 5. Small hiatal hernia. 6. Cholecystectomy. 7. Diverticulosis without diverticulitis. REFERENCES: Jayy Fong, et al. Guidelines for Management of Incidental Pulmonary Nodules Detected on CT Images: From the Fleischner Society 2017. Radiology. 2017;284(1):228-243.
== END 2023-07-26 11:42 | disposition home or self-care (01) ==
PROVIDERS: PCP Nurse Practitioner Family; Visit Provider Nurse Practitioner Family
DX: R91.1 Solitary pulmonary nodule (principal); R91.8 Other nonspecific abnormal finding of lung field; I25.10 Atherosclerotic heart disease of native coronary artery without angina pectoris; K44.9 Diaphragmatic hernia without obstruction or gangrene; Z90.49 Acquired absence of other specified parts of digestive tract; K57.90 Diverticulosis of intestine, part unspecified, without perforation or abscess without bleeding; M48.54XA Collapsed vertebra, not elsewhere classified, thoracic region, initial encounter for fracture
CPT/HCPCS: 71250; 80053; 81000; 84443; 85007; 85025; 85651; 86140; 86618; 86666; 86757

== ENCOUNTER → 2023-10-16 12:31 | Outpatient (BNVA) | payer MEDICARE, SELFPAY | PROVIDERS: PCP Nurse Practitioner Family; Visit Provider Family Medicine | DX: Z00.00 Encounter for general adult medical examination without abnormal findings (principal); Z13.6 Encounter for screening for cardiovascular disorders; I10 Essential (primary) hypertension; M85.89 Other specified disorders of bone density and structure, multiple sites | CPT/HCPCS: 80053; 80061; 84443; 85025 ==

== ENCOUNTER 2023-10-21 13:16 | Outpatient (CLI) | payer MEDICARE, SELFPAY ==
--- NOTE | 2023-10-21 13:30 | XR_ITS ---
WS: [id number] SCREENING DEXA SCAN [facility] CLINICAL INFORMATION: M85.89 - Other specified disorders of bone density and st... COMPARISON: 2020 FINDINGS: The L1-L4 bone mineral density measures 1.095 g/cm2. This corresponds to a T score score of -0.7 and Z score of 0.1. Left femoral neck bone mineral density measures 0.676 g/cm2. This corresponds to a T score of -2.6 an d Z score of -1.7. Right femoral neck bone mineral density measures 0.649 g/cm2. This corresponds to a T score -2.8of an d Z score of -1.9. Mean femoral neck bone mineral density measures 0.663 g/cm2. This corresponds to a T score of -2.7 an d Z score of -1.8. IMPRESSION: Normal bone mineralization lumbar spine. Osteoporosis femoral necks. Patient's FRAX calculated 10 year probability for major osteoporotic fracture is 39.8% and osteoporot ic hip fracture is 19.5%. Bone mineral density of the lumbar spine increased 0.1% Bone mineral density of the femoral necks increased 1.2%
== END 2023-10-21 13:17 | disposition home or self-care (01) ==
LOC: RAD 13:16
PROVIDERS: PCP Nurse Practitioner Family; Visit Provider Family Medicine
DX: M85.89 Other specified disorders of bone density and structure, multiple sites (principal); Z13.6 Encounter for screening for cardiovascular disorders
CPT/HCPCS: 77080

== ENCOUNTER → 2024-01-13 17:47 | Outpatient (BNVA) | payer MEDICARE, SELFPAY | PROVIDERS: PCP Nurse Practitioner Family; Visit Provider Nurse Practitioner Family | DX: M54.6 Pain in thoracic spine (principal); M54.50 Low back pain, unspecified; Z79.899 Other long term (current) drug therapy | CPT/HCPCS: 81000; 81003 ==

== ENCOUNTER 2024-01-14 11:42 | Outpatient (CLI) | payer MEDICARE, SELFPAY ==
--- NOTE | 2024-01-14 11:51 | XRR_ITS ---
PROCEDURE INFORMATION: Exam: XR Thoracic Spine Exam date and time: 01/14/2024 12:13 PM Age: 73 years old Clinical indication: Pain in thoracic spine; Additional info: M54.6 - pain in thoracic spine TECHNIQUE: Imaging protocol: Radiologic exam of the thoracic spine. Views: 3 views. Total images: 4 COMPARISON: CR XR thoracic spine 3V* [id number] 04/27/2021 8:39 AM FINDINGS: Bones/joints: Diffuse osteopenia noted. Moderate compression fracture noted at T12 unchanged. Mild compression fracture noted at T8 unchanged. Soft tissues: Unremarkable. Organs: Surgical clips are present in the right upper quadrant which are suggestive of prior cholecystectomy. XR/XR thoracic spine 3V* [id number] IMPRESSION: 1. Moderate compression fracture noted at T12 unchanged. 2. Mild compression fracture noted at T8 unchanged. 3. No new pathology detected.
== END 2024-01-14 11:43 | disposition home or self-care (01) ==
LOC: RAD 11:45
PROVIDERS: PCP Nurse Practitioner Family; Visit Provider Nurse Practitioner Family
DX: S22.089A Unspecified fracture of T11-T12 vertebra, initial encounter for closed fracture (principal); S22.069A Unspecified fracture of T7-T8 vertebra, initial encounter for closed fracture; X58.XXXA Exposure to other specified factors, initial encounter; M54.6 Pain in thoracic spine
CPT/HCPCS: 72072

== ENCOUNTER → 2024-01-23 10:03 | Outpatient (BNVA) | payer MEDICARE, SELFPAY | PROVIDERS: PCP Nurse Practitioner Family; Referring Provider Nurse Practitioner Family; Visit Provider Orthopaedic Surgery | DX: M54.50 Low back pain, unspecified; G89.29 Other chronic pain | CPT/HCPCS: 72072; 72100; 99204 ==

== ENCOUNTER 2024-02-10 11:40 | Outpatient (RCR) | payer MEDICARE, SELFPAY | END 2024-03-10 23:59 | disposition home or self-care (01) | LOC: SPT 11:40 | PROVIDERS: Visit Provider Orthopaedic Surgery | DX: M54.9 Dorsalgia, unspecified (principal); G89.29 Other chronic pain | CPT/HCPCS: 97110; 97161 ==

== ENCOUNTER → 2024-02-14 14:39 | Outpatient (BNVA) | payer MEDICARE, SELFPAY | PROVIDERS: Referring Provider Nurse Practitioner Family; Visit Provider Nurse Practitioner Women's Health | DX: N95.0 Postmenopausal bleeding (principal) | CPT/HCPCS: 87624 ==

== ENCOUNTER → 2024-03-02 08:35 | Outpatient (BNVA) | payer MEDICARE, SELFPAY | PROVIDERS: Visit Provider Nurse Practitioner Women's Health | DX: N95.0 Postmenopausal bleeding (principal); D25.9 Leiomyoma of uterus, unspecified | CPT/HCPCS: 76830 ==

== ENCOUNTER → 2024-03-04 12:03 | Outpatient (BNVA) | payer MEDICARE, SELFPAY | PROVIDERS: PCP Nurse Practitioner Family; Visit Provider Nurse Practitioner Family | DX: I10 Essential (primary) hypertension (principal); R73.9 Hyperglycemia, unspecified; F32.9 Major depressive disorder, single episode, unspecified; N39.41 Urge incontinence; R10.9 Unspecified abdominal pain; Z79.899 Other long term (current) drug therapy | CPT/HCPCS: 80053; 80061; 81003; 82607; 83036; 84439; 84443; 85025; 87086 ==

== ENCOUNTER 2024-03-05 08:04 | Outpatient (CLI) | payer MEDICARE, SELFPAY ==
--- NOTE | 2024-03-05 08:13 | MM_ITS ---
WS: [id number] BILATERAL SCREENING DIGITAL TOMOSYNTHESIS MAMMOGRAM WITH CAD HISTORY: SCREENING COMPARISON: 02/08/2023, 04/20/2022 and 09/23/2019 Bilateral CC and MLO views with tomosynthesis and synthetic mammography submitted. Computer aided det ection analyzed. Breast composition: The breasts are extremely dense, which lowers the sensitivity of mammography. No suspicious masses, microcalcifications or architectural distortion. Very dense fibroglandular tissue in the upper outer quadrants of each breast is stable over multiple prior years. Benign calcification s in each breast. IMPRESSION: MM/[place] [id number] BI-RADS: 2-Benign FOLLOW UP: 1 Year Follow-up
== END 2024-03-05 08:05 | disposition home or self-care (01) ==
LOC: RAD 08:05
PROVIDERS: PCP Nurse Practitioner Family; Visit Provider Nurse Practitioner Family
DX: Z12.31 Encounter for screening mammogram for malignant neoplasm of breast (principal); M48.061 Spinal stenosis, lumbar region without neurogenic claudication; M77.8 Other enthesopathies, not elsewhere classified; M46.06 Spinal enthesopathy, lumbar region; G95.29 Other cord compression; R92.323 Mammographic fibroglandular density, bilateral breasts; R92.1 Mammographic calcification found on diagnostic imaging of breast
CPT/HCPCS: 72110; 77063; 77067; 99213

== ENCOUNTER 2024-03-12 15:25 | Emergency (ER) | payer MEDICARE, SELFPAY ==
[2024-03-12 15:32] VITALS: BP 157/93; PULSE 75; TEMP 36.8; O2SAT 96; BMI 38.7
--- NOTE | 2024-03-12 16:32 | XRR_ITS ---
PROCEDURE INFORMATION: Exam: XR Left Humerus Exam date and time: 03/12/2024 7:53 PM Age: 73 years old Clinical indication: Injury or trauma; Fall; Other: Unknown TECHNIQUE: Imaging protocol: Radiologic exam of the left humerus. Views: 2 or more views. COMPARISON: CR XR shoulder LT min 2V* [id number] 06/29/2021 4:47 PM FINDINGS: Bones/joints: Normal. Soft tissues: Normal. XR/[place] [id number] IMPRESSION: No acute findings.
--- NOTE | 2024-03-12 16:32 | XRR_ITS ---
PROCEDURE INFORMATION: Exam: XR Left Wrist Exam date and time: 03/12/2024 8:03 PM Age: 73 years old Clinical indication: Injury or trauma; Fall; Other: Unknown TECHNIQUE: Imaging protocol: Radiologic exam of the left wrist. Views: 3 or more views. COMPARISON: CR (UP EX, ) 03/12/2024 8:03 PM FINDINGS: Bones/joints: Normal. Soft tissues: Normal. XR/XR wrist LT min 3V* [id number] IMPRESSION: No acute findings.
--- NOTE | 2024-03-12 16:32 | XRR_ITS ---
PROCEDURE INFORMATION: Exam: XR Lumbosacral Spine Exam date and time: 03/12/2024 8:09 PM Age: 73 years old Clinical indication: Injury or trauma; Fall; Other: Unknown TECHNIQUE: Imaging protocol: Radiologic exam of the lumbosacral spine. Views: 2 or 3 views. COMPARISON: CR XR lumbar spine min 4V [id number] 03/05/2024 2:09 PM FINDINGS: Bones/joints: Old healed fracture deformity of the left pubic tubercle. No acute fracture identified. Grade 1 anterolisthesis of L4 on L5 redemonstrated. Facet arthrosis in the lower lumbar spine. Soft tissues: Unremarkable. XR/XR lumbar spine 2-3V* [id number] IMPRESSION: 1. No acute fracture identified. 2. Old healed fracture deformity of the left pubic tubercle. 3. Grade 1 anterolisthesis of L4 on L5 redemonstrated.
--- NOTE | 2024-03-12 16:32 | XRR_ITS ---
PROCEDURE INFORMATION: Exam: XR Left Forearm Exam date and time: 03/12/2024 8:03 PM Age: 73 years old Clinical indication: Injury or trauma; Fall; Other: Unknown TECHNIQUE: Imaging protocol: Radiologic exam of the left forearm. Views: 2 views. COMPARISON: CR (UP EXM, ) 03/12/2024 8:03 PM FINDINGS: Bones/joints: Normal. Soft tissues: Normal. XR/XR forearm LT 2V [id number] IMPRESSION: No acute findings.
[2024-03-12 16:38] VITALS: BP 141/84; PULSE 69; RESP 17; O2SAT 95
--- NOTE | 2024-03-12 18:56 | XRR_ITS ---
PROCEDURE INFORMATION: Exam: XR Left Ribs with PA Chest Exam date and time: 03/12/2024 7:53 PM Age: 73 years old Clinical indication: Injury or trauma; Fall; Chest wall; Other: Rib pain on left side; Additional info: Fall injury TECHNIQUE: Imaging protocol: Radiologic exam of the left ribs with PA chest. Views: 3 views COMPARISON: CT chest con [id number] 07/26/2023 12:20 PM FINDINGS: Lungs: Unremarkable. No consolidation. Pleural spaces: Unremarkable. No pleural effusion. No pneumothorax. Heart/Mediastinum: Unremarkable. No cardiomegaly. Bones/joints: Unremarkable. XR/XR ribs LT mn 3V w CXR1V [id number] IMPRESSION: No acute findings.
--- NOTE | 2024-03-12 18:56 | CTR_ITS ---
PROCEDURE INFORMATION: Exam: CT Head Without Contrast Exam date and time: 03/12/2024 7:46 PM Age: 73 years old Clinical indication: Injury or trauma; Blunt trauma (contusions or hematomas); Patient HX: Fall yesterday. Abrasions to left side of face, no loc, no ALCARAZ; Additional info: Fall injury TECHNIQUE: Imaging protocol: Computed tomography of the head without contrast. Radiation optimization: All CT scans at this facility use at least one of these dose optimization techniques: automated exposure control; mA and/or kV adjustment per patient size (includes targeted exams where dose is matched to clinical indication); or iterative reconstruction. COMPARISON: CT head wo con* [id number] 05/28/2023 7:39 PM RADIATION DOSE METRICS: Total DLP (mGy-cm): 1116.24 FINDINGS: Brain: Subcortical and periventricular white matter changes consistent with small-vessel ischemic disease in the appropriate clinical setting. Small-vessel ischemic disease. Cerebral ventricles: No ventriculomegaly. Paranasal sinuses: Visualized sinuses are unremarkable. No fluid levels. Mastoid air cells: Visualized mastoid air cells are well aerated. Bones: Unremarkable. No acute fracture. Soft tissues: Unremarkable. CT/CT head wo con* [id number] IMPRESSION: 1. No acute intracranial abnormality. 2. Small-vessel ischemic disease.
--- NOTE | 2024-03-12 18:57 | ED_ITS ---
HPI - Fall General: Chief Complaint: Fall Stated Complaint: fall, back, side, & L wrist pain Time Seen by Provider: 03/12/24 18:49 History of Present Illness: 73-year-old female comes in today with f all complaints of left rib, low back, left wrist pain. Patient has areas of multiple bruising to the left side of the face, bilateral palmar hands. No obvious deformity. Patient is ambulatory. Review of Systems General: Reports: 10 or more systems reviewed and unremarkable except in HPI and below Musc: Reports: extremity pain PFS ED PFSH: Medical History (Updated 03/12/24 @ 20:33 by ADRIANA Alves) Enrolled in chronic care management No pertinent past medical history neghx: dm,thyroid,dvt/pe PCP: Minal Castro DDD (degenerative disc disease) Urge incontinence Hiatal hernia Depression GERD (gastroesophageal reflux disease) Surgical History Hx of cholecystectomy H/O esophagogastroduodenoscopy 12/08/2019: Hiatal hernia History of cataract extraction History of oophorectomy one removed-- laparoscopy; she cannot remember why; uncertain of laterality or surgeon H/O total knee replacement bilateral H/O colonoscopy (12/06/21) polyps, diverticulosis Family History Mother Diabetes Heart disease Hypertension Stroke Brother Cancer Daughter Breast cancer Denies family history of Ovarian cancer Prostate cancer Hyperlipidemia Anesthesia complication Bleeding disorder Uterine cancer Thyroid disease Physical Exam Const: COMMON NORMALS: alert HENMT: COMMON NORMALS: Normal external nose present HEAD & SCALP: other (Bruising left parietal to left face) FACE & SINUS: other (Left facial bruising with superficial abrasion) NOSE: Normal external nose present MOUTH: Normal oral and palatal mucosa present Neck/C-Spine: COMMON NORMALS: full ROM Chest: CHEST: Yes tenderness (Left anterior ribs) Resp: COMMON NORMALS: normal respiratory effort and clear to auscultation bilaterally AUSCULTATION: clear to auscultation bilaterally Cardio: COMMON NORMALS: regular rate and regular rhythm RATE: regular rate RHYTHM: regular rhythm GI: COMMON NORMALS: Soft to palpation and non-tender PALPATION: Yes Soft to palpation : COMMON NORMALS: Yes no CVA tenderness BLADDER/KIDNEY EXAM: Yes no CVA tenderness Back/Pelvis: COMMON NORMALS: no CVA tenderness and thoracic and lumbar spine normal to inspection Extremity: COMMON NORMALS: full ROM Neuro: MY COMA SCALE: document GCS findings My coma scale eye opening: Spontaneous Sutherland coma scale verbal response: Orientated Sutherland coma scale motor response: Obey commands Sutherland coma scale total score: 15 SENSORIUM/ORIENTATION: Yes alert Skin: NARRATIVE SKIN EXAM: Abrasion left side of face Course Vital Signs: Vital signs: Vital Signs Temperature 98.3 F 03/12/24 15:32 Pulse Rate 69 03/12/24 16:38 Respiratory Rate 17 03/12/24 16:38 Blood Pressure 141/84 03/12/24 16:38 Pulse Oximetry 95 03/12/24 16:38 Oxygen Delivery Me thod Room Air 03/12/24 15:32 MDM - Fall Medical Decision Making Patient presents with injury secondary to fall. On exam patient has an abrasion to the left side of the face. Patient also has bruising to the left side of the face, bilateral palmar hands. Patient has some left rib tenderness. No crepitus or subcu emphysema is palpated. Abdomen soft nontender. Patient is ambulatory. Differential diagnosis includes fracture, abrasion, contusions. CT scan of the head was normal. X-rays of the ribs, lumbar spine, forearm, wrist, and humerus showed no acute fractures. Reviewed exam with patient with recommendation for treatment and follow-up. Patient reported understanding agreed to plan. Lab Data Radiology Impressions Forearm X-Ray 03/12/24 16:32 IMPRESSION: No acute findings. Humerus X-Ray 03/12/24 16:32 IMPRESSION: No acute findings. Lumbar Spine X-Ray 03/12/24 16:32 IMPRESSION: 1. No acute fracture identified. 2. Old healed fracture deformity of the left pubic tubercle. 3. Grade 1 anterolisthesis of L4 on L5 redemonstrated. Wrist X-Ray 03/12/24 16:32 IMPRESSION: No acute findings. Head CT 03/12/24 18:56 IMPRESSION: 1. No acute intracranial abnormality. 2. Small-vessel ischemic disease. Ribs X-Ray 03/12/24 18:56 IMPRESSION: No acute findings. All radiology interpretation(s) finalized by discharge Discharge Plan Discharge Patient Disposition: Home Clinical Impression: Back pain, Rib pain on left side Fall Qualifiers: Encounter type: initial encounter Qualified Code(s): W19.XXXA - Unspecified fall, initial encounter Head injury Qualifiers: Encounter type: initial encounter Qualified Code(s): S09.90XA - Unspecified injury of head, initial encounter Condition: Stable Prescriptions: No Action cholecalciferol (vitamin D3) 1,000 unit capsule 1,000 unit PO QDAY calcium carbonate 500 mg calcium (1,250 mg) tablet 500 mg PO QDAY vitamin B complex [B Complex-Vitamin B12] Tablet 1 tab PO QDAY cetirizine 10 mg tablet 10 mg PO QDAY Qty: 30 5RF ketoconazole 2 % shampoo 1 applic topical .twice weekly Qty: 120 2RF citalopram 20 mg tablet See Rx Instructions .ROUTE .COMPLEX Qty: 45 1RF Dose Instruction: Take 1/2 (one-half) tablet by mouth once daily Rx Instructions: Take 1/2 (one-half) tablet by mouth once daily pantoprazole 40 mg tablet,delayed release (DR/EC) See Rx Instructions .ROUTE .COMPLEX Qty: 90 1RF Dose Instruction: Take 1 tablet by mouth once daily Rx Instructions: Take 1 tablet by mouth once daily tolterodine [Detrol LA] 4 mg capsule,extended release 24hr 4 mg PO DAILY Qty: 30 2RF Rx Instructions: 340 B lisinopril 20 mg tablet See Rx Instructions .ROUTE .COMPLEX Qty: 90 1RF Dose Instruction: Take 1 tablet by mouth once daily Rx Instructions: Take 1 tablet by mouth once daily amoxicillin-pot clavulanate 875-125 mg tablet 1 tab PO BID 7 Days Qty: 14 0RF zinc gluconate 50 mg Tablet 50 mg PO DAILY Multivitamin-Calcium and Iron Tablet 1 tab PO DAILY Discharge Orders: Discharge ED (Routine); Ordered 03/12/24 Ordered By: Guzman Portillo Referrals: Seheba Castro FNP [Primary Care Provider] - Discharge Diet: Usual diet Discharge Activity: Increase activity as tolerated Patient Instructions: Fall Prevention for Older Adults (ED), Musculoskeletal Pain (ED) Activity Restrictions/Additional Instructions: Use acetaminophen for pain. Activity as tolerated. Ice or heat for further pain relief. Follow-up with primary care for further instructions. Return to ED for new concerns. Coding Level of Care Code ED Design Technician for Puma Martinez
[2024-03-12 20:45] VITALS: BP 171/93; PULSE 79; RESP 16; O2SAT 97
== END 2024-03-12 20:45 | disposition home or self-care (01) ==
PROVIDERS: Emergency Provider Nurse Practitioner Family; PCP Nurse Practitioner Family
DX: M54.50 Low back pain, unspecified (principal); R07.81 Pleurodynia; S00.81XA Abrasion of other part of head, initial encounter; W19.XXXA Unspecified fall, initial encounter
CPT/HCPCS: 70450; 71101; 72100; 73060; 73090; 73110; 99284

== ENCOUNTER → 2024-03-13 09:25 | Outpatient (BNVA) | payer MEDICARE, SELFPAY | PROVIDERS: PCP Nurse Practitioner Family; Visit Provider Surgery | DX: K21.9 Gastro-esophageal reflux disease without esophagitis (principal); R13.10 Dysphagia, unspecified; R10.13 Epigastric pain | CPT/HCPCS: 99214 ==

== ENCOUNTER → 2024-03-18 11:09 | Outpatient (BNVA) | payer MEDICARE, SELFPAY | PROVIDERS: PCP Nurse Practitioner Family; Visit Provider Nurse Practitioner Women's Health | DX: N95.0 Postmenopausal bleeding (principal) | CPT/HCPCS: 88305 ==

== ENCOUNTER 2024-04-29 08:26 | Day surgery (SDC) | payer MEDICARE, SELFPAY ==
[2024-04-29 08:55] VITALS: BP 152/71; PULSE 82; RESP 18; TEMP 36.6; O2SAT 94; BMI 40.2
[2024-04-29] MEDS: sodium chloride 0.9% 1,000 ML 30 ML IV (09:14)
--- NOTE | 2024-04-29 09:14 | P.ANESASSM_ITS ---
Pre-Anesthetic Assessment Height/Weight: Height 1.52 m Weight 93.44 kg Temp Pulse Resp BP Pulse Ox O2 Del Method 97.9 F 82 18 152/71 94 Room Air 04/29/24 08:55 04/29/24 08:55 04/29/24 08:55 04/29/24 08:55 04/29/24 08:55 04/29/24 08:55 Operation Date: 04/29/24 09:45 Proposed Procedures p EGD Dilation W/ Balloon 02951, 72625, G0105, R13.10, R10.13, K21.9, K62.5(Not Applicable) - Alex Watts DO s Colonoscopy(Not Applicable) - Alex Watts DO Familial anesthetic complications: None Was Beta Lavon taken within 24 hours: N/A Was Clonidine taken within 24 hours: N/A Last intake: Intake Last Liquid Date 04/28/24 Last Liquid Time 23:50 Last Solid Date 04/27/24 Last Solid Time 18:00 Social No alcohol and No tobacco Exam alert, oriented x 3, clear to auscultation bilaterally and regular rate & rhythm Airway Mallampati: Class II Dentition: false Pulmonary Sleep Apnea GI Gastroesophageal Reflux Disease Metabolic Hyperlipidemia Anesthetic Plan ASA status: 2 Anesthesia: MAC Risk of > 500 ml blood loss (7ml/kg in children): No Medications/Allergies Home Medications Medication Instructions Recorded Confirmed Last Taken Type calcium carbonate (Oyster Shell 500 mg PO QDAY 12/03/19 04/29/24 04/28/24 History Calcium) cholecalciferol (vitamin D3) 25 1,000 unit PO QDAY 12/03/19 04/29/24 04/28/24 History mcg (1,000 unit) capsule vitamin B complex (B 1 tab PO QDAY 12/03/19 04/29/24 04/28/24 History Complex-Vitamin B12 tablet) cetirizine 10 mg tablet 10 mg PO QDAY #30 tabs 02/14/21 04/29/24 04/28/24 Rx fhjnkaysbmvd-Je-pdgx-minerals 1 tab PO DAILY 05/29/23 04/29/24 04/28/24 History zinc gluconate 50 mg tablet 50 mg PO DAILY 05/29/23 04/29/24 04/28/24 History pantoprazole 40 mg tablet,delayed 40 mg PO BID 6 weeks #84 tabs 03/13/24 04/29/24 04/28/24 Rx release (Protonix) tramadol 50 mg tablet 50 mg PO TID PRN pain #20 tabs 03/23/24 04/27/24 Unknown Rx citalopram 20 mg tablet 10 mg PO DAILY 04/27/24 04/29/24 04/28/24 History ketoconazole 2 % shampoo 1 applic topical .2XWEEKLY 04/27/24 04/27/24 Unknown History lisinopril 20 mg tablet 20 mg PO DAILY 04/27/24 04/29/24 04/28/24 History tolterodine 4 mg capsule,extended 4 mg PO DAILY 04/27/24 04/29/24 04/28/24 History release 24 hr (Detrol LA) Allergies Allergy/AdvReac Type Severity Reaction Status Date / Time sulfamethoxazole Allergy Severe ALGY-Anaphy Verified 04/27/24 11:51 [From Bactrim] laxis trimethoprim [From Bactrim] Allergy Severe ALGY-Anaphy Verified 04/27/24 11:51 laxis naproxen [From Aleve] Allergy ALGY-Rash Verified 04/27/24 11:51 Sulfa (Sulfonamide Allergy ALGY-Anaphy Verified 04/27/24 11:51 Antibiotics) laxis tuberculin, purified protein Allergy ALGY-Rash Verified 04/27/24 11:51 deriva [From Tubersol] [facility] Anesthesia Medical History Enrolled in chronic care management No pertinent past medical history neghx: dm,thyroid,dvt/pe PCP: Minal Castro DDD (degenerative disc disease) Urge incontinence Hiatal hernia Depression GERD (gastroesophageal reflux disease) Surgical History Hx of cholecystectomy H/O esophagogastroduodenoscopy 12/08/2019: Hiatal hernia History of cataract extraction History of oophorectomy one removed-- laparoscopy; she cannot remember why; uncertain of laterality or surgeon H/O total knee replacement bilateral H/O colonoscopy (12/06/21) polyps, diverticulosis Family History Mother Diabetes Heart disease Hypertension Stroke Brother Cancer Daughter Breast cancer Denies family history of Ovarian cancer Prostate cancer Hyperlipidemia Anesthesia complication Bleeding disorder Uterine cancer Thyroid disease Data Anesthesia Cardiac Studies: No Data to Display
--- NOTE | 2024-04-29 09:54 | PM.HP ---
Providers/Chief Complaint Primary Care Provider: ADRIANA Waddell Chief Complaint: R13.10, R10.13, K21.9, K62.5 History of Present Illness Anyi Shoemaker is a 73 year old female here for EGD with possible balloon dilation for dysphagia. She reports she is also had some hematochezia recently and therefore is also here for colonoscopy Review of Systems General: Reports: 10 or more systems reviewed and unremarkable except in HPI and below Medications/Allergies Home Medications Medication Instructions Recorded Confirmed Last Taken Type calcium carbonate (Oyster Shell 500 mg PO QDAY 12/03/19 04/29/24 04/28/24 History Calcium) cholecalciferol (vitamin D3) 25 1,000 unit PO QDAY 12/03/19 04/29/24 04/28/24 History mcg (1,000 unit) capsule vitamin B complex (B 1 tab PO QDAY 12/03/19 04/29/24 04/28/24 History Complex-Vitamin B12 tablet) cetirizine 10 mg tablet 10 mg PO QDAY #30 tabs 02/14/21 04/29/24 04/28/24 Rx qixsqjzwytau-Xr-eilb-minerals 1 tab PO DAILY 05/29/23 04/29/24 04/28/24 History zinc gluconate 50 mg tablet 50 mg PO DAILY 05/29/23 04/29/24 04/28/24 History pantoprazole 40 mg tablet,delayed 40 mg PO BID 6 weeks #84 tabs 03/13/24 04/29/24 04/28/24 Rx release (Protonix) tramadol 50 mg tablet 50 mg PO TID PRN pain #20 tabs 03/23/24 04/27/24 Unknown Rx citalopram 20 mg tablet 10 mg PO DAILY 04/27/24 04/29/24 04/28/24 History ketoconazole 2 % shampoo 1 applic topical .2XWEEKLY 04/27/24 04/27/24 Unknown History lisinopril 20 mg tablet 20 mg PO DAILY 04/27/24 04/29/24 04/28/24 History tolterodine 4 mg capsule,extended 4 mg PO DAILY 04/27/24 04/29/24 04/28/24 History release 24 hr (Detrol LA) Allergies Allergy/AdvReac Type Severity Reaction Status Date / Time sulfamethoxazole Allergy Severe ALGY-Anaphy Verified 04/27/24 11:51 [From Bactrim] laxis trimethoprim [From Bactrim] Allergy Severe ALGY-Anaphy Verified 04/27/24 11:51 laxis naproxen [From Aleve] Allergy ALGY-Rash Verified 04/27/24 11:51 Sulfa (Sulfonamide Allergy ALGY-Anaphy Verified 04/27/24 11:51 Antibiotics) laxis tuberculin, purified protein Allergy ALGY-Rash Verified 04/27/24 11:51 deriva [From Tubersol] PFSH Acute PFSH: Medical History Enrolled in chronic care management No pertinent past medical history neghx: dm,thyroid,dvt/pe PCP: Minal Castro DDD (degenerative disc disease) Urge incontinence Hiatal hernia Depression GERD (gastroesophageal reflux disease) Surgical History Hx of cholecystectomy H/O esophagogastroduodenoscopy 12/08/2019: Hiatal hernia History of cataract extraction History of oophorectomy one removed-- laparoscopy; she cannot remember why; uncertain of laterality or surgeon H/O total knee replacement bilateral H/O colonoscopy (12/06/21) polyps, diverticulosis Family History Mother Diabetes Heart disease Hypertension Stroke Brother Cancer Daughter Breast cancer Denies family history of Ovarian cancer Prostate cancer Hyperlipidemia Anesthesia complication Bleeding disorder Uterine cancer Thyroid disease Vitals/I&O/Wt Last Vital Signs Temp 97.9 F 04/29/24 08:55 Pulse 82 04/29/24 08:55 Resp 18 04/29/24 08:55 BP 152/71 04/29/24 08:55 Pulse Ox 94 04/29/24 08:55 O2 Del Method Room Air 04/29/24 08:55 Weight last 48 hrs Weight 206 lb A&P Assessment and plan (1) Dysphagia: (2) GERD (gastroesophageal reflux disease): Qualifiers: Esophagitis presence: without esophagitis Qualified Code(s): K21.9 - Gastro-esophageal reflux disease without esophagitis (3) Hematochezia: Plan EGD with possible balloon dilation Diagnostic colonoscopy The risks and benefits of the procedure, including bleeding, infection, intestinal perforation requiring surgery, missed lesion were explained to the patient. The patient is understanding of the risks and wishes to proceed. Attestations Medical Necessity Statement*: Home Coding Level of Care Code Acute Code for Chg Fwd Diagnoses Dysphagia R13.10 Gastroesophageal reflux disease without esophagitis K21.9 Esophagitis presence: without esophagitis Hematochezia K92.1
[2024-04-29 10:17] VITALS: BP 100/53; PULSE 68; RESP 14; TEMP 36.2; O2SAT 93
[2024-04-29 10:27] VITALS: BP 102/59; PULSE 73; RESP 16; O2SAT 94
[2024-04-29 10:32] VITALS: BP 117/64; PULSE 70; RESP 18; O2SAT 97
--- NOTE | 2024-04-29 10:41 | ANE.PACU2 ---
Inpatient post-anesthesia follow up: Airway intact: Yes Vital signs: Temperature 97.2 F Pulse Rate 70 Respiratory Rate 18 Blood Pressure 117/64 Pulse Oximetry 97 Oxygen Delivery Me thod Room Air Oxygen Flow Rate Fraction of Inspir ed Oxygen Hydration adequate: Yes Nausea and vomiting: No Pain level: 1 Mental status: Baseline
== END 2024-04-29 10:58 | disposition home or self-care (01) ==
PROVIDERS: PCP Nurse Practitioner Family; Visit Provider Surgery
PROC: 0DJD8ZZ Inspection of Lower Intestinal Tract, Via Natural or Artificial Opening Endoscopic (ICD-10-PCS; CPT 45378; 2024-04-29 09:45)
DX: K29.50 Unspecified chronic gastritis without bleeding (principal); K64.8 Other hemorrhoids; K57.30 Diverticulosis of large intestine without perforation or abscess without bleeding; G47.30 Sleep apnea, unspecified; K21.9 Gastro-esophageal reflux disease without esophagitis; E78.5 Hyperlipidemia, unspecified; K22.2 Esophageal obstruction; K44.9 Diaphragmatic hernia without obstruction or gangrene; K22.10 Ulcer of esophagus without bleeding
CPT/HCPCS: 43239; 43249; 45385; 88305; 88342; J2704; J3010; J7030

== ENCOUNTER → 2024-05-21 13:41 | Outpatient (BNVA) | payer MEDICARE, SELFPAY | PROVIDERS: PCP Nurse Practitioner Family; Visit Provider Surgery | DX: K21.9 Gastro-esophageal reflux disease without esophagitis (principal); K44.9 Diaphragmatic hernia without obstruction or gangrene; R13.10 Dysphagia, unspecified; K22.2 Esophageal obstruction | CPT/HCPCS: 99214 ==

== ENCOUNTER 2024-07-15 12:32 | Day surgery (SDC) | payer MEDICARE, SELFPAY ==
[2024-07-15 12:46] VITALS: BP 175/94; PULSE 62; RESP 18; TEMP 36.3; O2SAT 99
[2024-07-15] MEDS: sodium chloride 0.9% 1,000 ML 30 ML IV (13:08)
--- NOTE | 2024-07-15 13:53 | ANES.PREANE2 ---
Pre-Anesthetic Assessment Height/Weight: Height 1.6 m Weight 93.894 kg Temp Pulse Resp BP Pulse Ox O2 Del Method 97.4 F L 62 18 175/94 99 Room Air 07/15/24 12:46 07/15/24 12:46 07/15/24 12:46 07/15/24 12:46 07/15/24 12:46 07/15/24 12:46 Preop Diagnosis: dysphagia Operation Date: 07/15/24 13:30 Proposed Procedures p EGD Dilation W/ Balloon 29869, K22.2(Not Applicable) - Alex Watts DO Familial anesthetic complications: none Was Beta Lavon taken within 24 hours: N/A Was Clonidine taken within 24 hours: N/A Last intake: Intake Last Liquid Date 07/14/24 Last Liquid Time 21:00 Last Solid Date 07/14/24 Last Solid Time 17:30 Social No alcohol and No tobacco (previous smoker-quit smoking 30 years ago) Exam alert, oriented x 3 and clear to auscultation bilaterally Airway Mallampati: Class II Dentition: false (upper and lower) History/ROS No significant history except as noted Pulmonary Sleep Apnea CV/HEM Hypertension None reported Hepatic None reported GI dysphagia Metabolic Hyperlipidemia Musc/skel None reported Neuropsych None reported Anesthetic Plan ASA status: 2 Anesthesia: Anesthesia Evaluation and MAC Risk of > 500 ml blood loss (7ml/kg in children): No Medications/Allergies Home Medications Medication Instructions Recorded Confirmed Last Taken Type cetirizine 10 mg tablet 10 mg PO QDAY #30 tabs 02/14/21 07/14/24 07/14/24 Rx tvqrvsagvhqi-Dd-ewkt-minerals 1 tab PO DAILY 05/29/23 07/14/24 07/14/24 History zinc gluconate 50 mg tablet 50 mg PO DAILY 05/29/23 07/14/24 07/14/24 History tramadol 50 mg tablet 50 mg PO TID PRN pain #20 tabs 03/23/24 07/14/24 07/14/24 Rx lisinopril 20 mg tablet 20 mg PO DAILY 04/27/24 07/14/24 07/14/24 History ketoconazole 2 % shampoo See Rx Instructions .Route 05/21/24 07/14/24 07/14/24 Rx .COMPLEX #120 mL pantoprazole 40 mg tablet,delayed 40 mg PO BID 30 days #60 tabs 05/21/24 07/14/24 07/14/24 Rx release (Protonix) oxybutynin chloride 5 mg 5 mg PO DAILY #30 tabs 06/17/24 07/14/24 07/14/24 Rx tablet,extended release 24 hr Ca 600 mg-D3 20 mcg-mag oxide 50 1 tab PO DAILY 07/14/24 07/14/24 07/14/24 History qm-Zr-sabjwi-manganese-boron tablet (Calcium 600-D3 Plus (mag-zinc)) alendronate 70 mg tablet 70 mg PO .WKLY 07/14/24 07/14/24 07/14/24 History aspirin 81 mg tablet 81 mg PO DAILY 07/14/24 07/14/24 07/13/24 History citalopram 20 mg tablet 10 mg PO DAILY 07/14/24 07/14/24 07/14/24 History cyanocobalamin (vitamin B-12) 1,000 mcg PO DAILY 07/14/24 07/14/24 07/14/24 History 1,000 mcg tablet (Vitamin B-12) Allergies Allergy/AdvReac Type Severity Reaction Status Date / Time sulfamethoxazole Allergy Severe ALGY-Anaphy Verified 06/17/24 13:48 [From Bactrim] laxis trimethoprim [From Bactrim] Allergy Severe ALGY-Anaphy Verified 06/17/24 13:48 laxis naproxen [From Aleve] Allergy ALGY-Rash Verified 06/17/24 13:48 Sulfa (Sulfonamide Allergy ALGY-Anaphy Verified 06/17/24 13:48 Antibiotics) laxis tuberculin, purified protein Allergy ALGY-Rash Verified 06/17/24 13:48 deriva [From Tubersol] Current Medications Generic Name Dose Route Start Last Admin Trade Name Freq PRN Reason Stop Dose Admin Sodium Chloride 1,000 mls @ 30 mls/hr 07/15/24 12:45 07/15/24 13:08 Sodium Chloride 0.9% IV 07/16/24 12:44 30 mls/hr .Q24H KIT Administration PFSH Anesthesia Medical History Enrolled in chronic care management No pertinent past medical history neghx: dm,thyroid,dvt/pe PCP: Minal Castro DDD (degenerative disc disease) Urge incontinence Hiatal hernia Depression GERD (gastroesophageal reflux disease) Surgical History Hx of cholecystectomy H/O esophagogastroduodenoscopy 12/08/2019: Hiatal hernia History of cataract extraction History of oophorectomy one removed-- laparoscopy; she cannot remember why; uncertain of laterality or surgeon H/O total knee replacement bilateral H/O colonoscopy (12/06/21) polyps, diverticulosis Family History Mother Diabetes Heart disease Hypertension Stroke Brother Cancer Daughter Breast cancer Denies family history of Ovarian cancer Prostate cancer Hyperlipidemia Anesthesia complication Bleeding disorder Uterine cancer Thyroid disease Social History Smoking and tobacco/nicotine status: former use of tobacco/nicotine (quit smoking 40 years ago) Data Anesthesia Cardiac Studies: No Data to Display
--- NOTE | 2024-07-15 14:42 | PM.HP ---
Providers/Chief Complaint Primary Care Provider: ADRIANA Waddell Chief Complaint: K22.2 History of Present Illness Anyi Shoemaker is a 73 year old female Review of Systems General: Reports: 10 or more systems reviewed and unremarkable except in HPI and below Medications/Allergies Home Medications Medication Instructions Recorded Confirmed Last Taken Type cetirizine 10 mg tablet 10 mg PO QDAY #30 tabs 02/14/21 07/14/24 07/14/24 Rx cyvwkaevibgg-Vi-ptne-minerals 1 tab PO DAILY 05/29/23 07/14/24 07/14/24 History zinc gluconate 50 mg tablet 50 mg PO DAILY 05/29/23 07/14/24 07/14/24 History tramadol 50 mg tablet 50 mg PO TID PRN pain #20 tabs 03/23/24 07/14/24 07/14/24 Rx lisinopril 20 mg tablet 20 mg PO DAILY 04/27/24 07/14/24 07/14/24 History ketoconazole 2 % shampoo See Rx Instructions .Route 05/21/24 07/14/24 07/14/24 Rx .COMPLEX #120 mL pantoprazole 40 mg tablet,delayed 40 mg PO BID 30 days #60 tabs 05/21/24 07/14/24 07/14/24 Rx release (Protonix) oxybutynin chloride 5 mg 5 mg PO DAILY #30 tabs 06/17/24 07/14/24 07/14/24 Rx tablet,extended release 24 hr Ca 600 mg-D3 20 mcg-mag oxide 50 1 tab PO DAILY 07/14/24 07/14/24 07/14/24 History lb-Lk-jetetn-manganese-boron tablet (Calcium 600-D3 Plus (mag-zinc)) alendronate 70 mg tablet 70 mg PO .WKLY 07/14/24 07/14/24 07/14/24 History aspirin 81 mg tablet 81 mg PO DAILY 07/14/24 07/14/24 07/13/24 History citalopram 20 mg tablet 10 mg PO DAILY 07/14/24 07/14/24 07/14/24 History cyanocobalamin (vitamin B-12) 1,000 mcg PO DAILY 07/14/24 07/14/24 07/14/24 History 1,000 mcg tablet (Vitamin B-12) Allergies Allergy/AdvReac Type Severity Reaction Status Date / Time sulfamethoxazole Allergy Severe ALGY-Anaphy Verified 06/17/24 13:48 [From Bactrim] laxis trimethoprim [From Bactrim] Allergy Severe ALGY-Anaphy Verified 06/17/24 13:48 laxis naproxen [From Aleve] Allergy ALGY-Rash Verified 06/17/24 13:48 Sulfa (Sulfonamide Allergy ALGY-Anaphy Verified 06/17/24 13:48 Antibiotics) laxis tuberculin, purified protein Allergy ALGY-Rash Verified 06/17/24 13:48 deriva [From Tubersol] PFSH Acute PFSH: Medical History Enrolled in chronic care management No pertinent past medical history neghx: dm,thyroid,dvt/pe PCP: Minal Castro DDD (degenerative disc disease) Urge incontinence Hiatal hernia Depression GERD (gastroesophageal reflux disease) Surgical History Hx of cholecystectomy H/O esophagogastroduodenoscopy 12/08/2019: Hiatal hernia History of cataract extraction History of oophorectomy one removed-- laparoscopy; she cannot remember why; uncertain of laterality or surgeon H/O total knee replacement bilateral H/O colonoscopy (12/06/21) polyps, diverticulosis Family History Mother Diabetes Heart disease Hypertension Stroke Brother Cancer Daughter Breast cancer Denies family history of Ovarian cancer Prostate cancer Hyperlipidemia Anesthesia complication Bleeding disorder Uterine cancer Thyroid disease Social History Smoking and tobacco/nicotine status: former use of tobacco/nicotine (quit smoking 40 years ago) Vitals/I&O/Wt Last Vital Signs Temp 97.4 F L 07/15/24 12:46 Pulse 62 07/15/24 12:46 Resp 18 07/15/24 12:46 BP 175/94 07/15/24 12:46 Pulse Ox 99 07/15/24 12:46 O2 Del Method Room Air 07/15/24 12:46 Weight last 48 hrs Weight 207 lb A&P Assessment and plan (1) Dysphagia: Plan EGD with balloon dilation Attestations Medical Necessity Statement*: Home Coding Level of Care Code Acute Code for Chg Fwd Diagnoses Dysphagia R13.10
[2024-07-15] MEDS: EPINEPHrine 1 mg/mL INJ XX (14:54)
[2024-07-15 14:55] VITALS: BP 123/94; PULSE 97; RESP 12; TEMP 36.2; O2SAT 95
[2024-07-15 15:12] VITALS: BP 151/67; PULSE 75; RESP 16; O2SAT 95
--- NOTE | 2024-07-15 15:45 | ANE.PACU2 ---
Inpatient post-anesthesia follow up: Airway intact: Yes Vital signs: Temperature 97.2 F Pulse Rate 75 Respiratory Rate 16 Blood Pressure 151/67 Pulse Oximetry 95 Oxygen Delivery Me thod Room Air Oxygen Flow Rate 2 Fraction of Inspir ed Oxygen Hydration adequate: Yes Nausea and vomiting: No Pain level: 1 Mental status: Baseline
== END 2024-07-15 15:25 | disposition home or self-care (01) ==
PROVIDERS: PCP Nurse Practitioner Family; Visit Provider Surgery
DX: R13.10 Dysphagia, unspecified (principal); F32.A Depression, unspecified; Z87.891 Personal history of nicotine dependence; K29.50 Unspecified chronic gastritis without bleeding; K21.00 Gastro-esophageal reflux disease with esophagitis, without bleeding; K22.2 Esophageal obstruction; K44.9 Diaphragmatic hernia without obstruction or gangrene; G47.30 Sleep apnea, unspecified; I10 Essential (primary) hypertension; E78.5 Hyperlipidemia, unspecified; Z79.82 Long term (current) use of aspirin
CPT/HCPCS: 43239; 43249; 88305; 88342; J0171; J2704; J7030

== ENCOUNTER → 2024-07-27 14:27 | Outpatient (BNVA) | payer MEDICARE, SELFPAY | PROVIDERS: PCP Nurse Practitioner Family; Visit Provider Surgery | DX: R13.10 Dysphagia, unspecified (principal); Z09 Encounter for follow-up examination after completed treatment for conditions other than malignant neoplasm; K22.2 Esophageal obstruction; K44.9 Diaphragmatic hernia without obstruction or gangrene; K21.9 Gastro-esophageal reflux disease without esophagitis | CPT/HCPCS: 99214 ==

== ENCOUNTER → 2024-10-19 10:45 | Outpatient (BNVA) | payer MEDICARE, SELFPAY | PROVIDERS: PCP Nurse Practitioner Family; Visit Provider Nurse Practitioner Family | DX: I10 Essential (primary) hypertension (principal); B37.2 Candidiasis of skin and nail; F32.9 Major depressive disorder, single episode, unspecified; K21.9 Gastro-esophageal reflux disease without esophagitis; J06.9 Acute upper respiratory infection, unspecified; Z79.899 Other long term (current) drug therapy | CPT/HCPCS: 80053; 80061; 84443; 85025 ==

== ENCOUNTER → 2025-03-22 11:23 | Outpatient (BNVA) | payer MEDICARE, SELFPAY | PROVIDERS: PCP Nurse Practitioner Family; Visit Provider Nurse Practitioner Family | DX: I10 Essential (primary) hypertension (principal) | CPT/HCPCS: 80053; 84443; 85025 ==

== ENCOUNTER 2025-03-31 08:53 | Outpatient (CLI) | payer MEDICARE, SELFPAY ==
--- NOTE | 2025-03-31 08:59 | MM_ITS ---
WS: [id number] BILATERAL SCREENING DIGITAL TOMOSYNTHESIS MAMMOGRAM WITH CAD HISTORY: Z12.39 - Encounter for other screening for malignant neop... COMPARISON: 03/05/2024, 02/08/2023 and 04/20/2022 Bilateral CC and MLO views with tomosynthesis and synthetic mammography submitted. Computer aided detection analyzed. Breast composition: The breasts are heterogeneously dense, which may obscure small masses. No suspicious masses, microcalcifications or architectural distortion. Very dense asymmetric fibroglandular tissue in the upper outer quadrant of each breast. There are bilateral breast masses which are stable over multiple prior years. Benign calcifications. MM/MM scr BI tomosynthesis [id number] IMPRESSION: BI-RADS: 2 - Benign FOLLOW UP: 1 Year Follow-up
== END 2025-03-31 08:54 | disposition home or self-care (01) ==
PROVIDERS: PCP Nurse Practitioner Family; Visit Provider Nurse Practitioner Family
DX: Z12.31 Encounter for screening mammogram for malignant neoplasm of breast (principal); R92.333 Mammographic heterogeneous density, bilateral breasts; R92.323 Mammographic fibroglandular density, bilateral breasts; N63.20 Unspecified lump in the left breast, unspecified quadrant; N63.10 Unspecified lump in the right breast, unspecified quadrant; R92.1 Mammographic calcification found on diagnostic imaging of breast
CPT/HCPCS: 77063; 77067

== ENCOUNTER → 2025-07-13 12:05 | Outpatient (BNVA) | payer MEDICARE, SELFPAY | PROVIDERS: PCP Nurse Practitioner Family; Visit Provider Nurse Practitioner Family | DX: I10 Essential (primary) hypertension (principal); R60.0 Localized edema | CPT/HCPCS: 80053; 84443; 85025 ==